=== PATIENT | male | born 1960 | race Caucasian/White ===

== ENCOUNTER 2017-10-01 03:06 | Emergency (ER) | payer OTHER, SELFPAY ==
[2017-10-01 03:10] VITALS: BP 152/100; PULSE 75; RESP 18; TEMP 36.8; O2SAT 97; BMI 29.5
--- NOTE | 2017-10-01 03:16 | CT_ITS ---
CT abdomen pelvis wo con COMPARISON: None HISTORY: Right-sided flank pain, history of kidney stones TECHNIQUE: Multiple axial scans obtained from hemidiaphragms the pelvic floor and were performed without IV or oral contrast. Sagittal and coronal reformats were evaluated as well. FINDINGS: The lower lung rivers are clear, there is a small focal pleural scar left posterior gutter versus small noncalcified pulmonary nodule abutting the pleura. Consider follow-up CT scan the chest in 6 month to evaluate for interval stability. The liver spleen stomach pancreas and gallbladder appear grossly normal. The adrenal glands are normal. The kidneys are normal in size and there are tiny punctate nonobstructing calculus midpole left kidney. There is no obstructive uropathy of either kidney. Small bowel appears normal. The appendix is normal. There is a moderate amount stool in the ascending and transverse colon. The urinary bladder is normal, the prostate is slightly enlarged containing a couple of calcifications. There is a small left inguinal hernia containing fat only. IMPRESSION: Tiny punctate nonobstructing calculus left kidney, there is no obstructive uropathy of either kidney., I basically agree with the [facility] report except for lack of mention of the left-sided pleural based nodule versus scar.
[2017-10-01 03:25] LABS: Microscopic, Urine URINE MICROSCOPIC (MICROSCOPIC)
[2017-10-01 03:26] LABS: Appearance,Urine CLEAR (Clear); Bilirubin,Urine Negative (Negative); Blood, Urine Negative (Negative); Color,Urine YELLOW (Yellow); Glucose,Urine (UA) Negative (Negative); Ketones,Urine Negative (Negative); Leukocyte Esterase,Urine Negative (Negative); Nitrate,Urine Negative (Negative); PH,Urine 5.5 (5.0-8.5); Protein,Urine Negative (Negative); Specific Gravity, Urine >= 1.030 (1.005-1.030); Urobilinogen,Urine 0.2 EU/dl (0.2)
[2017-10-01 03:29] LABS: Amorphous Sediment,Urine Trace /lpf; Mucus,Urine 4+ /lpf
[2017-10-01 03:39] LABS: Basophils # 0.1 K/mm3 (0-0.2); Basophils % 0.5 % (0.1-2.0); Eosinophils # 0.4 K/mm3 (0.0-0.4); Eosinophils % 2.9 % (0.1-12.0); Hematocrit 49.8 % (42.0-52.0); Hemoglobin 16.3 g/dL (14.1-18.0); Lymphocytes # 2.4 K/mm3 (0.7-4.5); Lymphocytes % 18.5 K/mm3 (10-50); Mean Corpuscular HGB Conc 32.8 g/dL (31.8-35.4); Mean Corpuscular Hemoglobin 31.2 pg (27.0-31.2); Mean Platelet Volume 7.5 fl (7.4-10.4); Monocytes # 0.5 K/mm3 (0.1-1.0); Monocytes % 3.6 % (1.7-9.3); Neutrophils # 9.6 K/mm3 (1.8-7.8); Neutrophils % 74.5 % (37.0-80.0); Platelet Count 283 K/mm3 (142-424); Red Blood Count 5.24 M/mm3 (4.60-6.20); Red Cell Distribution Width 14.5 % (11.5-17.5); White Blood Count 12.8 K/mm3 (4.8-10.8)
[2017-10-01 03:44] LABS: Alanine Aminotransferase 37 U/L (12-78); Albumin/Globulin Ratio 1.2 (1.1-1.8); Alkaline Phosphatase 96 U/L (46-116); Anion Gap 12.8 mEq/L (5-15); Aspartate Amino Transferase 18 U/L (15-37); Bilirubin,Total 0.5 mg/dL (0.2-1.0); Blood Urea Nitrogen 17 mg/dL (7-18); Calcium 8.8 mg/dL (8.5-10.1); Carbon Dioxide 25 mmol/L (21.0-32.0); Chloride 104 mmol/L (98-107); Creatinine Clearance Estimated 137 mL/min (0-300); Creatinine,Serum 0.79 mg/dL (0.70-1.30); Estimated Glomerular Filt Rate 102 ml/min (>60); GFR (African American) 124 ML/MIN (>60); Globulin 3.4 gm/dl (1.3-3.2); Glucose 146 mg/dL (74-106); Potassium 3.8 mmoL/L (3.5-5.1); Sodium 138 mmol/L (136-145); Total Protein,Serum 7.4 gm/dL (6.4-8.2)
--- NOTE | 2017-10-01 04:09 | HMH.EDNVD ---
ED Disposition Clinical Impression: Flank pain, acute Disposition: Home, Self-Care Condition on Discharge: Good Instructions: DI for Flank Pain Additional Instructions: fluids and see pcp for follow up Referrals: Javier Drake MD [Primary Care Provider] - - Critical Care Critical Care Time: No Attestation: On 10/01/17, the high probability of a clinically significant, sudden or life threatening deterioration of the following system(s) required my full and direct attention, intervention and personal management. The time I documented below is in addition to time spent performing reported procedures but includes the following listed in this critical care notation. Medical Decision Making - Medical Records Medical records reviewed: Yes: I reviewed the patient's medical records. Vital Signs: 10/01/17 03:10 Temperature 98.2 F Temperature Source Oral Pulse Rate [Left Brachial] 75 Respiratory Rate 18 Blood Pressure [Left Arm] 152/100 Blood Pressure Mean [Left Arm] 117 Blood Pressure Source [Left Arm] Automatic Cuff Blood Pressure Position [Left Arm] Sitting 02 Sat by Pulse Oximetry 97 Oxygen Delivery Method Room Air - Lab Data Lab results reviewed: Yes: I reviewed the patient's lab results. Lab Results 10/01/17 03:20: Urine Color Yellow, Urine Appearance Clear, Urine pH 5.5, Ur Specific [place] >= 1.030, Urine Protein Negative, Urine Glucose (UA) Negative, Urine Ketones Negative, Urine Blood Negative, Urine Nitrate Negative, Urine Bilirubin Negative, Urine Urobilinogen 0.2, Ur Leukocyte Esterase Negative, Urine WBC 5-10, Amorphous Sediment Trace, Urine Mucus 4+ 10/01/17 03:25: WBC 12.8 H, RBC 5.24, Hgb 16.3, Hct 49.8, MCV 95.0 H, MCH 31.2, MCHC 32.8, RDW 14.5, Plt Count 283, MPV 7.5, Neut % (Auto) 74.5, Lymph % (Auto) 18.5, [place] % (Auto) 3.6, Eos % (Auto) 2.9, Baso % (Auto) 0.5, Neut # (Auto) 9.6 H, Lymph # (Auto) 2.4, [place] # (Auto) 0.5, Eos # (Auto) 0.4, Baso # (Auto) 0.1 10/01/17 03:25: Sodium 138, Potassium 3.8, Chloride 104, Carbon Dioxide 25, Anion Gap 12.8, BUN 17, Creatinine 0.79, Estimated Creat Clear 137, Estimated GFR 102, Est GFR ( Amer) 124, Glucose 146 H, Calcium 8.8, Total Bilirubin 0.5, AST 18, ALT 37, Alkaline Phosphatase 96, Total Protein 7.4, Albumin 4.0, Globulin 3.4 H, Albumin/Globulin Ratio 1.2 Result diagrams: 10/01/17 03:25 10/01/17 03:25 Orders (Tests/Meds): ED MEDICATIONS Generic Name Dose Route Start Last Admin Trade Name Freq PRN Reason Stop Dose Admin Sodium Chloride 1,000 mls @ 999 mls/hr 10/01/17 03:30 10/01/17 03:31 Sod Chloride 0.9% 1000ml Bag IV 10/01/17 04:30 999 mls/hr .Q1H1M ELLIE Administration Discontinued Medications Generic Name Dose Route Start Last Admin Trade Name Freq PRN Reason Stop Dose Admin Ketorolac Tromethamine 30 mg 10/01/17 03:18 10/01/17 03:27 Toradol 30mg/Ml Vial IV 10/01/17 03:19 30 mg ONCE ONE Administration ORDERS Category Date Time Status CT abdomen pelvis wo con Stat Cat Scan 10/01/17 03:16 Taken - CT Data CT Scan: Abdomen, Pelvis Time Received: 04:[address] Reviewed: Yes: I have viewed the radiologist's interpretation Preliminary Findings: Normal/NAD - Kody Inquiry Pt receiving controlled substance: No Nausea/Vomiting/Diarrhea HPI - General Chief complaint: Abdominal Pain Stated complaint: mid back pain Time Seen by Provider: 10/01/17 04:09 Mode of Arrival: Ambulatory Source of Information: Patient, Spouse, Medical Record Limitations: No Limitations Description of Symptoms (Recalled from ER Triage Doc. by RN): RIGHT FLANK PAIN, SUDDEN ONSET AT 0100 - History of Present Illness HPI Narrative: sudden onset of rt flank pain MD complaint: nausea Onset (ago): hour(s) Associated Abdominal Pain: Yes Location of pain: flank Severity: moderate - Related Data Allergies Allergy/AdvReac Type Severity Reaction Status Date / Time No Known Allergies Allergy Verified 0
--- NOTE | 2017-10-01 04:13 | ED_ITS ---
ED Disposition Clinical Impression: Flank pain, acute Disposition: Home, Self-Care Condition on Discharge: Good Instructions: DI for Flank Pain Additional Instructions: fluids and see pcp for follow up Referrals: Javier Drake MD [Primary Care Provider] - - Critical Care Critical Care Time: No Attestation: On 10/01/17, the high probability of a clinically significant, sudden or life threatening deterioration of the following system(s) required my full and direct attention, intervention and personal management. The time I documented below is in addition to time spent performing reported procedures but includes the following listed in this critical care notation. Medical Decision Making - Medical Records Medical records reviewed: Yes: I reviewed the patient's medical records. Vital Signs: 10/01/17 03:10 Temperature 98.2 F Temperature Source Oral Pulse Rate [Left Brachial] 75 Respiratory Rate 18 Blood Pressure [Left Arm] 152/100 Blood Pressure Mean [Left Arm] 117 Blood Pressure Source [Left Arm] Automatic Cuff Blood Pressure Position [Left Arm] Sitting 02 Sat by Pulse Oximetry 97 Oxygen Delivery Method Room Air - Lab Data Lab results reviewed: Yes: I reviewed the patient's lab results. Lab Results 10/01/17 03:20: Urine Color Yellow, Urine Appearance Clear, Urine pH 5.5, Ur Specific [place] >= 1.030, Urine Protein Negative, Urine Glucose (UA) Negative, Urine Ketones Negative, Urine Blood Negative, Urine Nitrate Negative, Urine Bilirubin Negative, Urine Urobilinogen 0.2, Ur Leukocyte Esterase Negative, Urine WBC 5-10, Amorphous Sediment Trace, Urine Mucus 4+ 10/01/17 03:25: WBC 12.8 H, RBC 5.24, Hgb 16.3, Hct 49.8, MCV 95.0 H, MCH 31.2, MCHC 32.8, RDW 14.5, Plt Count 283, MPV 7.5, Neut % (Auto) 74.5, Lymph % (Auto) 18.5, [place] % (Auto) 3.6, Eos % (Auto) 2.9, Baso % (Auto) 0.5, Neut # (Auto) 9.6 H, Lymph # (Auto) 2.4, [place] # (Auto) 0.5, Eos # (Auto) 0.4, Baso # (Auto) 0.1 10/01/17 03:25: Sodium 138, Potassium 3.8, Chloride 104, Carbon Dioxide 25, Anion Gap 12.8, BUN 17, Creatinine 0.79, Estimated Creat Clear 137, Estimated GFR 102, Est GFR ( Amer) 124, Glucose 146 H, Calcium 8.8, Total Bilirubin 0.5, AST 18, ALT 37, Alkaline Phosphatase 96, Total Protein 7.4, Albumin 4.0, Globulin 3.4 H, Albumin/Globulin Ratio 1.2 Result diagrams: 10/01/17 03:25 10/01/17 03:25 Orders (Tests/Meds): ED MEDICATIONS Generic Name Dose Route Start Last Admin Trade Name Freq PRN Reason Stop Dose Admin Sodium Chloride 1,000 mls @ 999 mls/hr 10/01/17 03:30 10/01/17 03:31 Sod Chloride 0.9% 1000ml Bag IV 10/01/17 04:30 999 mls/hr .Q1H1M ELLIE Administration Discontinued Medications Generic Name Dose Route Start Last Admin Trade Name Freq PRN Reason Stop Dose Admin Ketorolac Tromethamine 30 mg 10/01/17 03:18 10/01/17 03:27 Toradol 30mg/Ml Vial IV 10/01/17 03:19 30 mg ONCE ONE Administration ORDERS Category Date Time Status CT abdomen pelvis wo con Stat Cat Scan 10/01/17 03:16 Taken - CT Data CT Scan: Abdomen, Pelvis Time Received: 04:[address] Reviewed: Yes: I have viewed the radiologist's interpretation Preliminary Findings: Normal/NAD - Kody Inquiry Pt receiving controlled substance: No Nausea/Vomiting/Diarrhea HPI - General Ch
[2017-10-01 04:21] VITALS: BP 142/91; PULSE 68; RESP 16; TEMP 36.6; O2SAT 97
== END 2017-10-01 04:25 | disposition home or self-care (01) ==
PROVIDERS: Emergency Provider Emergency Medicine; Family Provider Internal Medicine Adolescent Medicine; PCP Internal Medicine Adolescent Medicine
DX: R10.9 Unspecified abdominal pain (principal); E11.9 Type 2 diabetes mellitus without complications
CPT/HCPCS: 74176; 80053; 81001; 85025; 96365; 96375; 99282

== ENCOUNTER → 2017-10-06 06:31 | Outpatient (CLI) | payer OTHER, SELFPAY ==
--- NOTE | 2017-10-06 06:33 | NM_ITS ---
History and Indications: Diabetes, hyperlipidemia, tobacco use, family history and chest pain Procedure: Patient exercised on Randy protocol 9 minutes and 35 seconds, resting heart rate was 69 bpm resting blood pressure 146/86, with exercise maximum heart rate achieved was 1 56 bpm which is equal to 94% of the maximum predicted heart rate and a blood pressure was 185/90. Test was stopped due to shortness of breath, patient denied any complained of chest pain. Patient has good exercise capacity achieved 10.1mets of workload on treadmill, the blood pressure response to exercise was adequate. Electrocardiogram: Resting electrocardiogram showed sinus rhythm right ventricular conduction delay nonspecific T wave changes, with exercise excessive baseline artifact seen, less than 1.[address] segment depression noted from the baseline EKG. The EKG portion of the exercise Myoview is nondiagnostic secondary to baseline abnormal EKG. Cardiac stress and resting SPECT images: Cardiac stress and resting SPECT images were obtained using technetium 99 Myoview 10.1 mCi at rest and 30.3 mCi at stress, gated SPECT further analysis of segmental wall motion and calculation of the ejection fraction also done. Cardiac stress and rest SPECT images show decreased tracer activity in the inferior and posterobasal wall which partially improves on the resting images suggestive of mixed ischemia and scar, computer derived ejection fraction is 65% with inferior and posterobasal wall moderate hypokinesis. Right ventricle is mildly enlarged with normal contractility. Conclusion: 1. The EKG portion of the exercise Myoview is nondiagnostic secondary to baseline abnormal EKG, patient has good exercise capacity achieved 10.1mets of workload on treadmill, the blood pressure response to exercise with adequate, test was started due to shortness of breath. 2. Scintigraphic evidence of ischemia and scar involving the inferior and posterobasal wall, computer derived ejection fraction 65% with segmental wall motion abnormality described above, right ventricle is mildly enlarged with normal contractility. 3. Abnormal exercise Myoview study.
== END ==
PROVIDERS: Family Provider Internal Medicine Adolescent Medicine; PCP Internal Medicine Adolescent Medicine; Visit Provider Internal Medicine Adolescent Medicine
DX: R07.9 Chest pain, unspecified (principal); R06.09 Other forms of dyspnea
CPT/HCPCS: 78452; 93017; A9502

== ENCOUNTER 2017-10-12 07:15 | Day surgery (SDC) | payer OTHER, SELFPAY ==
[2017-10-12] VITALS (12 sets, daily range): BP systolic 99–145; BP diastolic 51–88; PULSE 54–77; RESP 16–20; TEMP 36.6; O2SAT 92–99; BMI 28.8
--- NOTE | 2017-10-12 07:22 | IR_ITS ---
CARDIAC CATHETERIZATION DATE OF CATHETERIZATION:10/12/2017 10:05 AM PROCEDURES: 1. Left heart catheterization 2. Left ventriculogram 3. Selective coronary angiogram INDICATION FOR TEST: 1. Abnormal high risk stress test 2. Risk factors for coronary artery disease 3. Angina pectoris Informed consent was obtained prior to the procedure. COMPLICATIONS: None ESTIMATED BLOOD LOSS: Less than 10 ml. TECHNIQUE: One percent lidocaine used to anesthetize the right anterior aspect of the wrist. The right radial artery was accessed via the Seldinger technique. A 6 Upper Sor[place] sheath was placed in the right radial artery. 2.5 mg of verapamil, 800 mcg of nitroglycerin and 5000 U Heparin were given through the arterial sheath. The trap catheter was also used to perform left heart catheterization and left ventriculography. At the end of the procedure the patient was transferred to the post-op holding area in stable condition for arterial sheath removal. ANGIOGRAPHIC RESULTS: 1. The left main artery normal 2. The left anterior descending artery is proximally normal and has a mid vessel smooth 20% stenosis 3. The circumflex artery codominant and normal 4. The right coronary artery codominant and has a mid vessel smooth 20% stenosis 5. The VAZQUEZ ventriculogram reveals normal 65% 6. The left ventricular end-diastolic pressure 10 mmHg IMPRESSION: 1. Mild nonflow limiting coronary artery disease 2. Normal ejection fraction 3. Normal left ventricular pressure PLAN: 1. Medical management 2. Risk factor modification 3. Evaluation of noncardiac chest pain
== END 2017-10-12 13:48 | disposition home or self-care (01) ==
LOC: CATHLAB 07:20
PROVIDERS: Family Provider Internal Medicine Adolescent Medicine; PCP Internal Medicine Adolescent Medicine; Visit Provider Internal Medicine
DX: I20.8 Other forms of angina pectoris (principal); R94.39 Abnormal result of other cardiovascular function study; R94.31 Abnormal electrocardiogram [ECG] [EKG]; Z72.0 Tobacco use; E11.9 Type 2 diabetes mellitus without complications; Z82.49 Family history of ischemic heart disease and other diseases of the circulatory system
CPT/HCPCS: 93458; 99152; C1725; C1769; J1644; Q9967

== ENCOUNTER → 2018-01-20 11:31 | Outpatient (REF) | payer OTHER, SELFPAY ==
[2018-01-20 13:37] LABS: Alanine Aminotransferase 37 U/L (12-78); Albumin/Globulin Ratio 1.2 (1.1-1.8); Alkaline Phosphatase 110 U/L (46-116); Anion Gap 11.2 mEq/L (5-15); Aspartate Amino Transferase 26 U/L (15-37); Blood Urea Nitrogen 16 mg/dL (7-18); Calcium 9.2 mg/dL (8.5-10.1); Carbon Dioxide 28 mmol/L (21.0-32.0); Chloride 104 mmol/L (98-107); Chol/HDL Ratio 4.2 (1-3.5); Cholesterol 137 mg/dL (140-200); Creatinine,Serum 0.69 mg/dL (0.70-1.30); Estimated Glomerular Filt Rate 119 ml/min (>60); GFR (African American) 144 ML/MIN (>60); Globulin 3.3 gm/dl (1.3-3.2); Glucose 69 mg/dL (74-106); HDL Cholesterol 33 mg/dL (27-67); LDL Cholesterol 72 mg/dL (0-130); Potassium 4.2 mmoL/L (3.5-5.1); Prostate Specific Ag Screen 20.1 ng/mL (0.0-4.0); Sodium 139 mmol/L (136-145); Total Protein,Serum 7.3 gm/dL (6.4-8.2); Triglycerides 160 mg/dL (30-200); VLDL Cholesterol 32 mg/dL (0-40)
[2018-01-20 14:23] LABS: Basophils # 0.1 K/mm3 (0-0.2); Basophils % 0.7 % (0.1-2.0); Eosinophils # 0.3 K/mm3 (0.0-0.4); Eosinophils % 2.7 % (0.1-12.0); Hematocrit 54.8 % (42.0-52.0); Hemoglobin 17.7 g/dL (14.1-18.0); Lymphocytes # 2.1 K/mm3 (0.7-4.5); Lymphocytes % 17.6 K/mm3 (10-50); Mean Corpuscular HGB Conc 32.2 g/dL (31.8-35.4); Mean Corpuscular Hemoglobin 31.1 pg (27.0-31.2); Mean Corpuscular Volume 96.4 fl (80-94); Mean Platelet Volume 8.5 fl (7.4-10.4); Monocytes # 0.6 K/mm3 (0.1-1.0); Monocytes % 5.3 % (1.7-9.3); Neutrophils # 8.6 K/mm3 (1.8-7.8); Neutrophils % 73.7 % (37.0-80.0); Platelet Count 310 K/mm3 (142-424); Red Blood Count 5.69 M/mm3 (4.60-6.20); Red Cell Distribution Width 14.9 % (11.5-17.5); White Blood Count 11.6 K/mm3 (4.8-10.8)
[2018-01-20 15:38] LABS: Hemoglobin A1C 5.2 % (0.0-7.0)
[2018-01-21 09:24] LABS: LH 6.4 mIU/mL (1.7-8.6)
[2018-01-21 19:40] LABS: Prolactin 9.1 ng/mL (4.0-15.2); Testosterone,Total 555 ng/dL (264-916)
== END ==
LOC: LAB.CARL 11:31
PROVIDERS: Visit Provider Nurse Practitioner Family
DX: Z00.00 Encounter for general adult medical examination without abnormal findings (principal); N40.0 Benign prostatic hyperplasia without lower urinary tract symptoms; N52.9 Male erectile dysfunction, unspecified; E78.5 Hyperlipidemia, unspecified; E11.9 Type 2 diabetes mellitus without complications; M06.9 Rheumatoid arthritis, unspecified
CPT/HCPCS: 80053; 80061; 83002; 83036; 84146; 84403; 85025; G0103

== ENCOUNTER → 2018-03-04 11:01 | Outpatient (CLI) | payer OTHER, SELFPAY ==
--- NOTE | 2018-03-04 11:05 | XR_ITS ---
XR chest 2V HISTORY: ITS.REASON: COPD, COUGH, TOBACCO USE ORDERING PHYSICIAN: Javier Drake MD PATIENT AGE: 57 years COMPARISON: 02/03/2016 FINDINGS: The cardiomediastinal silhouette and pulmonary vascularity are within normal limits. Calcified granulomas present in the right upper lobe. There is mild coarsening of the bronchovascular markings suggesting chronic peribronchial inflammatory change. No acute bony anomalies. IMPRESSION: Suspect chronic peribronchial inflammatory change/bronchitis/COPD with no acute infiltrate .
== END ==
PROVIDERS: Visit Provider Internal Medicine Adolescent Medicine
DX: J44.1 Chronic obstructive pulmonary disease with (acute) exacerbation (principal); R05 Cough; Z72.0 Tobacco use
CPT/HCPCS: 71046

== ENCOUNTER → 2018-03-14 12:57 | Outpatient (CLI) | payer OTHER, SELFPAY ==
[2018-03-14 16:05] LABS: Prostate Specific Ag, Diagnost 20.85 ng/mL (0.0-4.0)
== END ==
PROVIDERS: Visit Provider Urology
DX: R97.20 Elevated prostate specific antigen [PSA] (principal)
CPT/HCPCS: 36415; 84153

== ENCOUNTER → 2018-03-29 16:22 | Outpatient (CLI) | payer OTHER, SELFPAY ==
--- NOTE | 2018-03-29 16:25 | XR_ITS ---
XR chest 2V HISTORY: Cough and shortness of air, recent pneumonia, smoker ITS.REASON: LOBAR PNEUMONIA ORDERING PHYSICIAN: Javier Drake MD PATIENT AGE: 57 years COMPARISON: 03/04/2018 FINDINGS: Unremarkable cardiovascular structures. There remains mild coarsening of the bronchovascular markings similar to the previous exam which may be due to smoking-related lung disease/chronic bronchitis. There is increased density in the left lung base which was not present on the previous exam and may be due to an area of pneumonia. The remaining lungs are clear. No acute bony anomalies. IMPRESSION: Chronic changes with suspected left lower lobe pneumonia
== END ==
PROVIDERS: PCP Internal Medicine Adolescent Medicine; Visit Provider Internal Medicine Adolescent Medicine
DX: J18.1 Lobar pneumonia, unspecified organism (principal)
CPT/HCPCS: 71046

== ENCOUNTER → 2018-04-13 08:47 | Outpatient (CLI) | payer OTHER, SELFPAY ==
--- NOTE | 2018-04-13 08:59 | NM_ITS ---
NM bone scan whole body CLINICAL INDICATION: ITS.REASON: PROSTATE CANCER ORDERING PHYSICIAN: Olegario Paredes MD PATIENT AGE: 57 years Comparison: None DOSE: 26.6 mCi technetium MDP FINDINGS: Homogeneous and symmetric activity is present within the bony structures. No abnormal uptake that would indicate metastatic disease. There is some nonspecific periarticular activity in the left ankle and contamination artifact in the perineal area. Symmetric activity noted in the SI joints on both sides. There was some sclerosis in this region on previous CT scan related to sacroiliitis. IMPRESSION: No convincing evidence of bony metastasis
[2018-04-13 09:09] LABS: Blood Urea Nitrogen 13 mg/dL (7-18); Estimated Glomerular Filt Rate 100 ml/min (>60); GFR (African American) 121 ML/MIN (>60)
--- NOTE | 2018-04-13 10:39 | HMH.ITSHM ---
ASA TAMSULOSINE OMEPRAZOLE
== END ==
PROVIDERS: Family Provider Internal Medicine Adolescent Medicine; PCP Internal Medicine Adolescent Medicine; Visit Provider Urology
DX: C61 Malignant neoplasm of prostate (principal)
CPT/HCPCS: 36415; 78306; 82565; 84520; A9503

== ENCOUNTER → 2018-04-17 08:44 | Outpatient (CLI) | payer OTHER, SELFPAY ==
--- NOTE | 2018-04-17 08:52 | CT_ITS ---
CT abdomen pelvis w con INDICATION: New diagnosis of: PROSTATE CA ORDERING PHYSICIAN: Olegario Paredes MD PATIENT AGE: 57 years COMPARISON: September 2017 TECHNIQUE: 75 cc Isovue-370 administered IV with scanning at 70 seconds followed delayed scan at 10 minutes. Oral contrast also utilized Axial images obtained with sagittal and coronal reformats. All CT scans at the facility use one or more dose reduction, viz: automated exposure control, ma/kV adjustment per patient size (including targeted exams where dose is matched to indication, i.e. head), or iterative reconstruction technique. FINDINGS: Lung bases are clear. Heart normal size. . Liver. No focal lesions. No ductal dilatation. Spleen unremarkable. Pancreas unremarkable. Adrenals unremarkable. Gallbladder. No calcified gallstones. tract . No urinary tract calculi nor obstruction. Normal enhancement kidneys. Ureters unremarkable Minimal stranding about the kidneys reflecting mild chronic changes . Right kidney.: 12 mm cyst at the lateral aspect lower right kidney Small 8 mm cyst just superior to this also noted Left kidney: 14 mm cyst lower pole left kidney Pelvis slightly enlarged prostate measures 5.2 cm transverse diameter scattered calcifications. Seminal vesicles appear normal size. No evident pelvic adenopathy or focal mass otherwise seen. No free fluid at pelvis. . No retroperitoneal or mesenteric nor inguinal adenopathy. GI tract. Oral contrast is seen within the stomach and within distal small bowel loops as well as throughout the majority of the colon. generous stool the rectum moderate stool elsewhere throughout the colon Small bowel appears normal. Terminal ileum unremarkable. Appendix upper normal wall thickness but similar to previous study... . There is bulging of fat through a dilated left inguinal ring reflecting a small developing left inguinal hernia contains mainly fat but there is segment of Proximal sigmoid which dips s towards this the entry of this small developing left inguinal hernia. Small diverticulum associated with the sigmoid noted. Axial image 154, 153, coronal 31 Stable very slight minimal hazy fat about this area unchanged. Osseous structures. No evidence of metastatic disease. No subcutaneous change. ======= IMPRESSION 1. Stable CT abdomen and pelvis. 2.. Prostate minimally enlarged but appears similar to the September 2017 study no asymmetry or focal mass evident by CT . Seminal vesicles appear normal size . No evidence of regional adenopathy. No retroperitoneal adenopathy.. No evidence of osseous metastatic disease 3. Small benign renal cysts bilateral 4. Small stable mainly fat containing left inguinal hernia.
== END ==
PROVIDERS: Family Provider Internal Medicine Adolescent Medicine; PCP Internal Medicine Adolescent Medicine; Visit Provider Urology
DX: C61 Malignant neoplasm of prostate (principal)
CPT/HCPCS: 74177; Q9967

== ENCOUNTER → 2018-06-20 10:31 | Outpatient (CLI) | payer OTHER, SELFPAY ==
[2018-06-20 13:26] LABS: Prostate Specific Ag, Diagnost < 0.05 ng/mL (0.0-4.0)
== END ==
PROVIDERS: PCP Internal Medicine Adolescent Medicine; Visit Provider Urology
DX: C61 Malignant neoplasm of prostate (principal)
CPT/HCPCS: 36415; 84153

== ENCOUNTER → 2018-09-19 16:17 | Outpatient (CLI) | payer BC, SELFPAY ==
[2018-09-21 08:13] LABS: PSA, Free <0.01 ng/mL; Prostate Specific Ag <0.1 ng/mL (0.0-4.0)
== END ==
PROVIDERS: Visit Provider Urology
DX: C61 Malignant neoplasm of prostate (principal)
CPT/HCPCS: 36415; 84153; 84154

== ENCOUNTER → 2018-12-18 17:10 | Outpatient (CLI) | payer BC, SELFPAY ==
[2018-12-18 21:33] LABS: Prostate Specific Ag, Diagnost 0 ng/mL (0.0-4.0)
== END ==
PROVIDERS: Visit Provider Urology
DX: R97.20 Elevated prostate specific antigen [PSA] (principal)
CPT/HCPCS: 36415; 84153

== ENCOUNTER → 2019-01-18 17:00 | Outpatient (CLI) | payer BC, SELFPAY ==
[2019-01-18 17:51] LABS: Basophils % 0.4 % (0.1-2.0); Eosinophils # 0.1 K/mm3 (0.0-0.4); Eosinophils % 1.4 % (0.1-12.0); Hematocrit 42.7 % (42.0-52.0); Hemoglobin 14.8 g/dL (14.1-18.0); Lymphocytes # 1.9 K/mm3 (0.7-4.5); Lymphocytes % 22.7 % (10-50); Mean Corpuscular HGB Conc 34.6 g/dL (31.8-35.4); Mean Corpuscular Hemoglobin 31.4 pg (27.0-31.2); Mean Corpuscular Volume 90.7 fl (80-94); Mean Platelet Volume 6.9 fl (7.4-10.4); Monocytes # 0.4 K/mm3 (0.1-1.0); Monocytes % 5.3 % (1.7-9.3); Neutrophils # 5.9 K/mm3 (1.8-7.8); Neutrophils % 70.2 % (37.0-80.0); Platelet Count 282 K/mm3 (142-424); Red Blood Count 4.71 M/mm3 (4.60-6.20); Red Cell Distribution Width 14.8 % (11.5-17.5); White Blood Count 8.3 K/mm3 (4.8-10.8)
[2019-01-18 18:36] LABS: Alanine Aminotransferase 43 U/L (12-78); Albumin Level 3.8 gm/dL (3.4-5.0); Albumin/Globulin Ratio 1.2 (1.1-1.8); Alkaline Phosphatase 91 U/L (46-116); Anion Gap 14.9 mEq/L (5-15); Aspartate Amino Transferase 22 U/L (15-37); Bilirubin,Total 0.8 mg/dL (0.2-1.0); Blood Urea Nitrogen 16 mg/dL (7-18); Carbon Dioxide 25 mmol/L (21.0-32.0); Chloride 106 mmol/L (98-107); Chol/HDL Ratio 3.5 (1-3.5); Cholesterol 114 mg/dL (140-200); Creatinine,Serum 0.82 mg/dL (0.70-1.30); Estimated Glomerular Filt Rate 97 ml/min (>60); GFR (African American) 118 ML/MIN (>60); Globulin 3.3 gm/dl (1.3-3.2); Glucose 83 mg/dL (74-106); HDL Cholesterol 33 mg/dL (27-67); LDL Cholesterol 57 mg/dL (0-130); Potassium 3.9 mmoL/L (3.5-5.1); Sodium 142 mmol/L (136-145); Total Protein,Serum 7.1 gm/dL (6.4-8.2); Triglycerides 122 mg/dL (30-200); VLDL Cholesterol 24 mg/dL (0-40)
[2019-01-18 18:45] LABS: Erythrocyte Sedimentation Rate 10 mm/hr (0-20)
[2019-01-18 18:58] LABS: Hemoglobin A1C 5.4 % (0.0-7.0)
== END ==
PROVIDERS: Visit Provider Nurse Practitioner Family
DX: E78.5 Hyperlipidemia, unspecified (principal); E11.9 Type 2 diabetes mellitus without complications; M06.9 Rheumatoid arthritis, unspecified
CPT/HCPCS: 36415; 80053; 80061; 83036; 85025; 85651

== ENCOUNTER → 2019-03-21 17:01 | Outpatient (CLI) | payer BC, SELFPAY ==
[2019-03-21 19:33] LABS: Prostate Specific Ag, Diagnost 0 ng/mL (0.0-4.0)
== END ==
PROVIDERS: Visit Provider Urology
DX: C61 Malignant neoplasm of prostate (principal)
CPT/HCPCS: 36415; 84153

== ENCOUNTER → 2019-06-13 17:11 | Outpatient (CLI) | payer BC, SELFPAY ==
[2019-06-13 19:06] LABS: Prostate Specific Ag, Diagnost 0 ng/mL (0.0-4.0)
== END ==
PROVIDERS: Visit Provider Urology
DX: C61 Malignant neoplasm of prostate (principal)
CPT/HCPCS: 36415; 84153

== ENCOUNTER → 2019-09-17 17:02 | Outpatient (CLI) | payer BC, SELFPAY ==
[2019-09-17 18:07] LABS: Prostate Specific Ag, Diagnost < 0.05 ng/mL (0.0-4.0)
== END ==
PROVIDERS: Urology; Visit Provider Urology
DX: C61 Malignant neoplasm of prostate (principal)
CPT/HCPCS: 36415; 84153

== ENCOUNTER → 2020-03-20 15:54 | Outpatient (CLI) | payer BC, SELFPAY ==
[2020-03-20 19:13] LABS: Prostate Specific Ag, Diagnost < 0.064 ng/ml (0.0-4.0)
== END ==
PROVIDERS: Visit Provider Urology
DX: C61 Malignant neoplasm of prostate (principal)
CPT/HCPCS: 36415; 84153

== ENCOUNTER → 2021-01-29 14:14 | Outpatient (CLI) | payer BC, SELFPAY ==
--- NOTE | 2021-01-29 14:19 | XR_ITS ---
PROCEDURE: XR KNEE RT 3V CLINICAL INDICATION: PAIN IN RT KNEE COMPARISON: No exams were available for comparison FINDINGS: No fracture or dislocation. No lytic or blastic change. There is normal mineralization. The joint spaces are well-preserved. No significant degenerative/arthritic changes. No erosive changes evident. Other findings:None. IMPRESSION: No acute findings. Dictated by: Jorge Wilkerson MD 01/29/2021 15:26 Jorge Wilkerson MD in [place] 01/29/2021 15:26
[2021-01-29 15:35] LABS: Chloride 101 mmol/L (98-107); Sodium 136 mmol/L (136-145)
[2021-01-29 15:38] LABS: Alanine Aminotransferase 33 U/L (12-78); Albumin Level 4.4 g/dl (3.5-5.0); Albumin/Globulin Ratio 1.4 (1.1-1.8); Alkaline Phosphatase 95 U/L (38-126); Aspartate Amino Transferase 30 U/L (17-59); Bilirubin,Total 0.7 mg/dl (0.2-1.3); Blood Urea Nitrogen 13 mg/dl (9-20); Calcium 9.2 mg/dl (8.4-10.2); Carbon Dioxide 27 mmol/L (22.0-30.0); Estimated Glomerular Filt Rate 116 ml/min (>60); GFR (African American) 140 ML/MIN (>60); Globulin 3.1 g/dL (1.3-3.2); Glucose 92 mg/dl (74-100); Total Protein,Serum 7.5 g/dl (6.3-8.2)
[2021-01-29 15:43] LABS: Hemoglobin A1C 5.3 % (4.0-6.0)
[2021-01-29 15:44] LABS: C-Reactive Protein 6.1 mg/L (0-4)
[2021-01-29 16:05] LABS: Uric Acid 4.7 mg/dl (3.5-8.5)
[2021-01-29 16:07] LABS: Erythrocyte Sedimentation Rate 10 mm/hr (0-20)
[2021-02-01 14:25] LABS: Anti-Centromere B Antibodies <0.2 AI (0.0-0.9); Anti-DNA (DS) Ab Qn <1 IU/mL (0-9); Anti-Jo-1 <0.2 AI (0.0-0.9); Anti-Smith Antibody <0.2 AI (0.0-0.9); Antichromatin Antibodies <0.2 AI (0.0-0.9); Antiscleroderma-70 Antibodies <0.2 AI (0.0-0.9); RNP Antibodies 0.6 AI (0.0-0.9); Sjogren's Anti-SS-A <0.2 AI (0.0-0.9); Sjogren's Anti-SS-B <0.2 AI (0.0-0.9)
[2021-02-03 00:07] LABS: Anti-Cyclic Citrullinated Pept 4 units (0-19)
== END ==
PROVIDERS: PCP Internal Medicine Adolescent Medicine; Visit Provider Internal Medicine Adolescent Medicine
DX: M25.561 Pain in right knee (principal); E11.9 Type 2 diabetes mellitus without complications; M06.9 Rheumatoid arthritis, unspecified
CPT/HCPCS: 36415; 73562; 80053; 83036; 84550; 85651; 86140; 86200; 86225; 86235

== ENCOUNTER 2021-04-18 17:39 | Emergency (ER) | payer BC, SELFPAY ==
[2021-04-18 18:35] VITALS: BP 140/87; PULSE 80; RESP 19; TEMP 36.9; O2SAT 98; BMI 31.6
--- NOTE | 2021-04-18 19:01 | HMH.EDUTC ---
[facility] [place] Disposition Clinical Impression: Exposure to COVID-19 virus Disposition: Home, Self-Care Condition on Discharge: Good Instructions: DI for COVID-19 (Suspected or Confirmed ), Coronavirus Disease 2019, Preventing the Spread of Coronavirus Discharge Instructions Additional Instructions: *Monitor Temp, Over the counter Motrin or Tylenol as directed/as needed Tylenol every 4 hours and Motrin every 6 hours (as long as your family doctor has told you that you can take it) for fever or pain. and straight to ER if unable to lower temp less than 101.0 after medication given *Warm salt water gargles may help to soothe the throat *Throat Lozenges *Warm fluids like tea with honey may help to soothe the throat *Sleep elevated *Humidifier/Vaporizer Follow up IMMEDIATELY for new or worsening symptoms or no Noticeable improvement over the next 48-72 hours. 911 for difficulty breathing or swallowing You were tested for today for COVID19 your test result should be back in the next 24-48 hours, you may call to the [facility] to see if your test results are back in the next 48 hours [phone] [facility] hours are 9am-9pm You was given a handout with instructions for Self Quarantine and Self isolation for while you wait on test results and what to do if they are positive If you are positive the Health Dept will be contacting you also Make sure to take your Vitamins Vit. C Vit D and Zinc if you can take them Referrals: Javier Drake MD [Primary Care Provider] - Forms: Work/School Release Time of Disposition: 19:06 Medical Decision Making - Kody Inquiry Pt receiving controlled substance: No Kody was queried for this patient: No Vital Signs: 04/18/21 18:35 Temperature 98.4 F Temperature Source Oral Pulse Rate [Right Brachial] 80 Respiratory Rate 19 Blood Pressure [Right Arm] 140/87 Blood Pressure Mean [Right Arm] 104 Blood Pressure Source [Right Arm] Automatic Cuff Blood Pressure Position [Right Arm] Sitting 02 Sat by Pulse Oximetry 98 Oxygen Delivery Method Room Air Orders (Tests/Meds): ORDERS Category Date Time Status Covid-19 Nasal PCR ([facility]) Routine Lab 04/18/21 18:[address] [facility] [place] HPI - General Stated complaint: exposure,sore throat,cough Time Seen by Provider: 04/18/21 19:01 Mode of Arrival: Ambulatory Source of Information: Patient Limitations: No Limitations Description of Symptoms (Recalled from Triage Doc. by RN): COVID TEST D/T EXPOSURE. C/O SORE THROAT, BODY ACHES HEENT Symptoms (Recalled from RN notes): Yes Resp Symptoms (Recalled from RN notes): No Skin Symptoms (Recalled from RN notes): No MS Symptoms (Recalled from RN notes): Yes Functional Status (Recalled from RN notes): WNL - History of Present Illness Provider Complaint: Patient state that he was recently around someone that tested positive for COVID state that he has been having some nasal drainage and scratchy throat and feeling achy States that he thinks it is his allergies but due to being around family member wanted to get tested - Related Data Home Medications Medication Instructions Recorded Confirmed aspirin 81 mg tablet,delayed 81 mg PO ONCE tab 10/11/17 03/21/20 release meloxicam 7.5 mg tablet 7.5 mg PO ONCE 10/11/17 03/21/20 methotrexate sodium 2.5 mg tablet 17.5 mg PO QWEEK tab 10/11/17 03/21/20 omeprazole 20 mg capsule,delayed 20 mg PO ONCE 10/11/17 03/21/20 release rosuvastatin 20 mg tablet 20 mg PO ONCE 10/11/17 03/21/20 tamsulosin 0.4 mg capsule 0.4 mg PO ONCE 10/11/17 03/21/20 Allergies Allergy/AdvReac Type Severity Reaction Status Date / Time No Known Allergies Allergy Verified 03/21/20 15:21 - Worker's Comp Is this a Worker's Comp case?: No [facility] History - Hepatitis A Screen Drug use history?: No High risk sexual behaviors?: No History of sexually transmitted infection?: No Currently employed?: No Childcare worker?: No Do you have indoor plumbing?: Yes Do you have electricity?: Yes Atte
[2021-04-18 19:10] VITALS: BP 140/87; PULSE 80; RESP 19; TEMP 36.9; O2SAT 98
--- NOTE | 2021-04-19 10:56 | PC.NURSE ---
PATIENT NOTIFIED OF POSITIVE COVID TEST AT THIS TIME
--- NOTE | 2021-04-20 09:38 | PC.NURSE ---
Patient notified of positive COVID result
== END 2021-04-18 19:26 | disposition home or self-care (01) ==
PROVIDERS: Emergency Provider Nurse Practitioner; PCP Internal Medicine Adolescent Medicine
DX: J02.9 Acute pharyngitis, unspecified (principal); R05 Cough; Z20.822 Contact with and (suspected) exposure to COVID-19
CPT/HCPCS: 99202; G0463; U0003

== ENCOUNTER 2021-04-24 17:41 | Emergency (ER) | payer BC, SELFPAY ==
[2021-04-24 20:05] VITALS: BP 148/87; PULSE 70; RESP 18; TEMP 36.7; O2SAT 98; BMI 31.7
--- NOTE | 2021-04-24 20:48 | HMH.EDUTC ---
[facility] Disposition Clinical Impression: COVID-19 Disposition: Home, Self-Care Condition on Discharge: Good Instructions: DI for COVID-19 (Suspected or Confirmed ), Preventing the Spread of Coronavirus Discharge Instructions Additional Instructions: Drink plenty of fluids. Take tylenol for pain or fever. Return if you begin to have difficulty breathing. Follow up with your regular doctor. GO TO THE ER FOR ANY WORSENING SYMPTOMS Quarantine until you know the results of your covid-19 test. If it is positive, the health department should call you and give you further instructions about your length of Quarantine and other things. Notify your school or workplace of your results and follow their instructions regarding return to work/school. Referrals: Javier Drake MD [Primary Care Provider] - Time of Disposition: 20:51 Medical Decision Making - Medical Records Medical records reviewed: No: I reviewed the patient's medical records. - Kody Inquiry Pt receiving controlled substance: No Vital Signs: 04/24/21 20:05 04/24/21 20:54 Temperature 98.1 F 98.1 F Temperature Source Oral Pulse Rate 70 Pulse Rate [Right Brachial] 70 Respiratory Rate 18 18 Blood Pressure 148/87 H Blood Pressure [Right Arm] 148/87 H Blood Pressure Mean [Right Arm] 107 Blood Pressure Source [Right Arm] Automatic Cuff Blood Pressure Position [Right Arm] Sitting 02 Sat by Pulse Oximetry 98 Oxygen Delivery Method Room Air - Lab Data Lab results reviewed: Yes: I reviewed the patient's lab results. [facility] HPI - General Stated complaint: covid test Time Seen by Provider: 04/24/21 20:48 Mode of Arrival: Ambulatory Source of Information: Patient Limitations: No Limitations Description of Symptoms (Recalled from Triage Doc. by RN): PATIENT NEEDING RETESTED FOR COVID, TEST POSITIVE ON 04/19 HEENT Symptoms (Recalled from RN notes): No Resp Symptoms (Recalled from RN notes): No Skin Symptoms (Recalled from RN notes): No MS Symptoms (Recalled from RN notes): No Functional Status (Recalled from RN notes): WNL - History of Present Illness Provider Complaint: He is here to have a repeat covid test. He was positive last week. He has not had symptoms or felt bad for the past couple of days. He needs a negative test to return to work. - Related Data Home Medications Medication Instructions Recorded Confirmed aspirin 81 mg tablet,delayed 81 mg PO ONCE tab 10/11/17 03/21/20 release meloxicam 7.5 mg tablet 7.5 mg PO ONCE 10/11/17 03/21/20 methotrexate sodium 2.5 mg tablet 17.5 mg PO QWEEK tab 10/11/17 03/21/20 omeprazole 20 mg capsule,delayed 20 mg PO ONCE 10/11/17 03/21/20 release rosuvastatin 20 mg tablet 20 mg PO ONCE 10/11/17 03/21/20 tamsulosin 0.4 mg capsule 0.4 mg PO ONCE 10/11/17 03/21/20 Allergies Allergy/AdvReac Type Severity Reaction Status Date / Time No Known Allergies Allergy Verified 03/21/20 15:21 - Worker's Comp Is this a Worker's Comp case?: No [facility] History - Hepatitis A Screen Drug use history?: No High risk sexual behaviors?: No History of sexually transmitted infection?: No Currently employed?: No Childcare worker?: No Do you have indoor plumbing?: Yes Do you have electricity?: Yes Attestation statement:: This patient has been screened for Hepatitis A risk factors. I have reviewed the patient's past medical history: Yes Medical History: Reports:: Diabetes Mellitus Type 2, Gastroesophageal Reflux Disease(GERD), Hyperlipidemia Denies:: MRSA, Seizures Laterality Cases: Bilateral: Carpal Tunnel Release Other Surgeries: Yes: No Previous Surgery, Cardiac Catheterization, Colonoscopy, Hernia Repair, Other Amputation: No Fractures: No - Social History Smoking Status: Former smoker # Packs/Day (cigarettes): 2 Alcohol Intake: never Alcohol Intake Frequency:: other Substance Use Type: denies use Occupational Status: employed Housing: house Household Members: spouse Eduardo
[2021-04-24 20:54] VITALS: BP 148/87; PULSE 70; RESP 18; TEMP 36.7; O2SAT 98
--- NOTE | 2021-04-25 11:25 | PC.NURSE ---
relayed positive covid results to pt
== END 2021-04-24 20:55 | disposition home or self-care (01) ==
PROVIDERS: Emergency Provider Nurse Practitioner Family; PCP Internal Medicine Adolescent Medicine
DX: U07.1 COVID-19 (principal)
CPT/HCPCS: 99202; G0463; U0003

== ENCOUNTER → 2021-10-16 10:38 | Outpatient (CLI) | payer BC, SELFPAY ==
[2021-10-16 11:28] LABS: Basophils % 0.6 % (0.1-2.0); Eosinophils # 0.1 K/mm3 (0.0-0.4); Eosinophils % 2.9 % (0.1-12.0); Hematocrit 46.3 % (42.0-52.0); Hemoglobin 15.9 g/dL (14.1-18.0); Lymphocytes # 0.9 K/mm3 (0.7-4.5); Lymphocytes % 22.8 % (10-50); Mean Corpuscular HGB Conc 34.4 g/dL (31.8-35.4); Mean Corpuscular Hemoglobin 30.7 pg (27.0-31.2); Mean Corpuscular Volume 89.3 fl (80-94); Monocytes # 0.4 K/mm3 (0.1-1.0); Monocytes % 9.8 % (1.7-9.3); Neutrophils # 2.6 K/mm3 (1.8-7.8); Platelet Count 320 K/mm3 (142-424); Red Blood Count 5.19 M/mm3 (4.60-6.20); Red Cell Distribution Width 13.6 % (11.5-17.5); White Blood Count 4.1 K/mm3 (4.8-10.8)
[2021-10-16 12:35] LABS: Chloride 102 mmol/L (98-107); Sodium 133 mmol/L (136-145)
[2021-10-16 12:38] LABS: Blood Urea Nitrogen 15 mg/dl (9-20); Calcium 8.5 mg/dl (8.4-10.2); Carbon Dioxide 26 mmol/L (22.0-30.0); Estimated Glomerular Filt Rate 116 ml/min (>60); GFR (African American) 140 ML/MIN (>60); Glucose 80 mg/dl (74-100)
== END ==
PROVIDERS: Visit Provider Surgery
DX: Z01.812 Encounter for preprocedural laboratory examination (principal); Z11.52 Encounter for screening for COVID-19; K46.9 Unspecified abdominal hernia without obstruction or gangrene
CPT/HCPCS: 36415; 80048; 85025; C9803; U0003; U0005

== ENCOUNTER 2021-10-19 06:06 | Day surgery (SDC) | payer BC, SELFPAY ==
[2021-10-15 11:31] VITALS: BMI 31.0
[2021-10-19] VITALS (11 sets, daily range): BP systolic 113–147; BP diastolic 75–96; PULSE 57–64; RESP 10–18; TEMP 36.1–43; O2SAT 90–99
--- NOTE | 2021-10-19 06:56 | P.PN_ITS ---
[facility] Anesthesia Checklist - Structural Data Admitted From: Home Planned Operative Procedure/s: inguinal hernia Consent for Planned Operative Procedure(s) Verified: Yes - Additional verifications Anesthesia Reactions: No Hx Blood Transfusions: No Blood Transfusion Reaction: No - Airway Assessment C-Spine Mobility Assessed: Yes TMJ Mobility Assessed: Yes Dentition: Good Dentition - Neurological Assessment Level of Consciousness: Awake, Alert, Appropriate - Anesthesia Plan Anesthesia Risk discussed: Yes Anesthesia Plan: Verified ASA Class: II Anesthesia Type: General [facility] History I have reviewed the patient's past medical history: Yes Medical History: Reports:: Diabetes Mellitus Type 2, Gastroesophageal Reflux Disease(GERD), Hyperlipidemia Denies:: Cancer, Internal Pacemaker, MRSA, Seizures *Have you ever received a pneumonia vaccine?: Yes *Have you received a flu vaccine this season?: No Other Medical History: Denies: Blood Transfusion Reaction Anesthesia experience/problems:: none Laterality Cases: Bilateral: Carpal Tunnel Release Other Surgeries: Yes: No Previous Surgery, Cardiac Catheterization, Colonoscopy, Hernia Repair, Other. No: Pacemaker Amputation: No Fractures: No - *Social History Last grade of school completed: High school graduate Smoking Status: Former smoker # Packs/Day (cigarettes): 2 Alcohol Intake: never Alcohol Intake Frequency:: other Substance Use Type: denies use *Occupational Status:: employed Housing: house Household Members: spouse *Travel in the last 8 weeks: None Family Hx:: Coronary Artery Disease, Heart Attack, Cancer
--- NOTE | 2021-10-19 09:02 | HMH.OPNOTE ---
Date of procedure: 10/19/21 Pre-op Diagnosis:: Left inguinal hernia Post-op Diagnosis:: Same Procedure performed:: Open repair of left inguinal hernia with placement of large sized Bard prefix mesh Surgeon:: Troy Tapia MD [employer] SUPERVISOR:: Luis Miguel Shine Anesthesia: GETA Estimated blood loss (mL): 15 Clinical Note:: Patient is a 60-year-old male from [place] referred by Dr. Javier Drake for hernia. He describes symptoms in the left inguinal area. He has had some symptoms for about 5 to 6 years. However he has had increasing swelling knot and increasing pain. He states that he has more symptoms when he is walking and on his feet for longer periods of time. Of note, the patient did have an open supraumbilical hernia repair done about 10 or 15 years ago. He had laparoscopic robotic prostatectomy about 3 years ago. On examination patient was found to have a palpable left inguinal hernia. Options were discussed. Plan was made for open left inguinal hernia repair. Operative findings:: He had a moderate indirect left inguinal hernia Operative note:: Patient was taken to the operating room. He was given preoperative intravenous antibiotic. In the operating room he was placed in the supine position. General anesthesia was induced via endotracheal tube. His lower abdomen and perineum were prepped and draped in the standard surgical fashion. He was positioned in slight Trendelenburg position. Landmarks were identified. Oblique incision was made in the left inguinal area superior to landmarks identifying the inguinal ligament. Dissection was carried down through subcutaneous tissues and Ever's fascia using electrocautery. External oblique muscle was cleaned free. Extra oblique muscle was opened along the length of its fibers to the external ring. Ilioinguinal nerve was identified and preserved. Cord structures were dissected free from the inguinal floor and encircled with a Eden drain. Dissection was carried out identifying a hernia sac. This was an indirect hernia. This was dissected free from the cord structures. There was concern that this could be a sliding hernia. Hernia sac was therefore not open but the hernia was able to be reduced easily. Large sized Bard prefix mesh plug was inserted into the region of the internal ring, lateral to the cord structures, at the site of the defect. It was secured to shelving edge of the inguinal ligament and to transversalis muscle with a couple of 2-0 PDS sutures. The onlay mesh was then secured to the floor of the inguinal canal suturing it to the Bernardo's ligament with a running 2-0 PDS along the shelving edge of the inguinal ligament in the inferolateral position. It was secured superomedially to the transversalis fascia with interrupted 2-0 PDS horizontal mattress sutures. The 2 leaves of the mesh were used to encircle the cord structures and reconstruct the internal ring. There were sutured to 1 another with interrupted 2-0 PDS sutures. Repair appeared adequate. There was good hemostasis. Local anesthetic was infiltrated into the deep tissues as well as for an inguinal nerve block. Cord structures and nerve were returned to the normal anatomic position. External oblique muscle was closed over the cord structures with a running 2-0 Vicryl. Ever's fascia was closed with a running 2-0 Vicryl. Skin was closed with 4-0 Monocryl in a running subcuticular fashion. Steri-Strips and dressings were applied. Condition: stable Disposition: PACU Complications:: None immediate
--- NOTE | 2021-10-19 09:03 | P.PN_ITS ---
[facility] Anesthesia Record Part I Intake, IV Amount: 700 Estimated blood loss (mL): 5 Urine output (mL): 100 Blood Pressure: 115/81 SaO2: 90 Pulse Rate: 62 Respiratory Rate: 10 Temperature: 98.5 F Patient is:: Drowsy, Oral/Nasal airway Stable to PACU at:: 09:01
[2021-10-19 09:15] LABS: POC Glucose,Bedside 125 (70-110)
--- NOTE | 2021-10-19 09:16 | PC.NURSE ---
0906-checked fsbs with results of 125, notified LEORA Potts with no new orders at this time
--- NOTE | 2021-10-19 09:36 | PC.NURSE ---
0929-detailed report called to SHAWN Downing 0931-pt transported to post op via stretcher w/michelle rails up and left in care of SHAWN Downing with bed locked in lowest position, vss, pt stable
[2021-10-19 16:03] LABS: Microscopic,Cath URINE MICROSCOPIC (MICROSCOPIC)
[2021-10-19 19:15] LABS: Appearance,Urine/Cath CLEAR (Clear); Bilirubin,Cath Negative (Negative); Blood, Urine/Cath Negative (Negative); Color,Urine/Cath YELLOW (Yellow); Glucose,Urine/Cath (UA) Negative (Negative); Ketones,Urine/Cath Negative (Negative); Leukocyte Esterase,Cath Negative (Negative); Nitrate,Cath Negative (Negative); Protein,Urine/Cath Negative (Negative); Specific Gravity, Urine/Cath >= 1.030 (1.005-1.030); Urobilinogen,Cath 0.2 EU/dl (0.2)
[2021-10-19 20:52] LABS: Squamous Epithelial Ur./Cath Occasional #/hpf (0-5); WBC,Urine/Cath Occasional #/hpf (0-3)
[2021-10-20 07:16] VITALS: BP 138/75; PULSE 62; TEMP 36.6
--- NOTE | 2021-10-20 07:16 | P.PN_ITS ---
[facility] Anesthesia Record Part II Discharge Time: 09:31 Destination: Surgical Day Care (OP Surgery) PACU nurse assessment reviewed?: Yes Patient Condition:: Good Anesthesia Complications:: None Swallowing reflex intact?: Yes Cyanosis?: No Blood Pressure: 138/75 Pulse Rate: 62 Temperature: 97.9 F Mental Status: Alert & Oriented Pain level:: 0 Nausea and/or vomitting:: None Intake, IV Amount: 0
== END 2021-10-19 10:41 | disposition home or self-care (01) ==
LOC: OR 06:09
PROVIDERS: PCP Internal Medicine Adolescent Medicine; Visit Provider Surgery
PROC: (CPT 49505; principal; 2021-10-19 07:30)
DX: K40.90 Unilateral inguinal hernia, without obstruction or gangrene, not specified as recurrent (principal); E11.9 Type 2 diabetes mellitus without complications
CPT/HCPCS: 49505; 81001; 82962; 96374; J0131; J2405

== ENCOUNTER → 2021-11-03 09:57 | Outpatient (CLI) | payer BC, SELFPAY ==
--- NOTE | 2021-11-03 10:02 | XR_ITS ---
FINAL REPORT CLINICAL HISTORY: LT SACROILIAC JOINT PAIN, no recent injury, pain x 2 mos FINDINGS: 5 views of the lumbar spine were obtained. There is no evidence of fracture or dislocation. The vertebral alignment is normal. There is mild degenerative change. There is facet arthropathy in the mid and lower lumbar spine. There is mild degenerative change of the SI joints. No paraspinous soft tissue abnormalities identified. IMPRESSION: Mild degenerative change. Reviewed, Interpreted and Dictated by Troy De La Rosa III, MD Transcribed by Jj Pitts Authenticated by Troy De La Rosa III, MD on 11/03/2021 11:17:08 AM [facility]
== END ==
PROVIDERS: PCP Internal Medicine Adolescent Medicine; Visit Provider Internal Medicine Adolescent Medicine
DX: M53.3 Sacrococcygeal disorders, not elsewhere classified (principal)
CPT/HCPCS: 72110

== ENCOUNTER → 2021-11-23 12:45 | Outpatient (POV) | payer BC, SELFPAY ==
[2021-11-23 13:00] VITALS: BP 134/80; PULSE 95; RESP 18; TEMP 36.9; O2SAT 97; BMI 31.0
--- NOTE | 2021-11-23 16:00 | HMH.PMCON ---
Assessment and Plan (1) Sacroiliitis Status: Acute Category: Medical Code(s): M46.1 - Sacroiliitis, not elsewhere classified - Assessment and plan all Dx Assessment and Plan for all problems:: Patient has been having chronic left SI pain in the last few months. He has tried 2 rounds of steroids, meloxicam, Tylenol arthritis, and Flexeril with no relief of symptoms. Patient states that his pain starts around his left upper buttock that radiates down to his thigh and does not cross his left knee. Patient cannot tolerate any prolonged activity such as sitting, standing, and walking. His left SI is positive for ELICIA, Jake's, [place]'s, [place]'s, compression, and distraction. Based on this presentation, patient has left sacroiliitis. I will schedule the patient for a left SI injection. Risks and benefits of the procedure have been explained to the patient. Patient would like to proceed with the procedure. We will have to monitor his sugar during the procedure. Patient has been instructed to contact the clinic with any concerns before the next appointment. Dr. George has reviewed this note and agrees with this plan of care. This note was dictated using voice recognition software and make contain errors or omissions. HPI - Data of Consult Consult date: 11/23/21 Requesting Physician: GUANAKO Hedrick - Consult Narrative Reason for consult: Left hip pain History of present illness: Mr. Holder is a 60 year old male presents today as a new patient. Patient is referred by Dr. Darell Ortiz for left hip/SI pain. Patient presents today with worsening left hip/SI pain that has been going on for several months. Patient denies any recent falls or traumas. Patient says that his pain originates from his left upper buttock that radiates down to his left thigh and does not cross his left knee. This is worse with any prolonged activity such as sitting, standing, and walking. Patient has trouble getting up from a sitting position. Patient denies any loss of bowel and bladder functions. For pain management, patient says that he has tried 2 rounds of steroids which seemed to help for 2 to 3 days. Patient is also taking Tylenol arthritis 650 mg 4 times a day. He is also on Flexeril 10 mg once a day and meloxicam 15 mg daily. Patient says that some of these medications are helping manage his pain but he is still unable to increase his activity. Patient rates his pain today as 9 out of 10. He was tried on [place] 5 mg by Troy Tapia which did not help. [facility] #[id number] with an active morphine equivalent of 0. CC: GUANAKO Hedrick [facility] History I have reviewed the patient's past medical history: Yes Medical History: Reports:: Diabetes Mellitus Type 2, Gastroesophageal Reflux Disease(GERD), Hyperlipidemia, Hypertension Denies:: Cancer, Diabetes Mellitus Type 1, Internal Pacemaker, MRSA, Seizures *Have you ever received a pneumonia vaccine?: No *Have you received a flu vaccine this season?: No Other Medical History: Denies: Blood Transfusion Reaction Laterality Cases: Bilateral: Carpal Tunnel Release Other Surgeries: Yes: No Previous Surgery, Cardiac Catheterization, Colonoscopy, Hernia Repair, Other. No: Pacemaker Amputation: No Fractures: No - *Social History Smoking Status: Former smoker # Packs/Day (cigarettes): 2 Alcohol Intake: never Alcohol Intake Frequency:: other Substance Use Type: denies use *Occupational Status:: employed Housing: house Household Members: spouse *Travel in the last 8 weeks: None Family Hx:: Coronary Artery Disease, Heart Attack, Cancer Review of Systems - Review of Systems Review of Systems: General: No recent weight changes, no fever, no sleep disturbances Respiratory: No cough, no shortness of air, no recurring pulmonary infections Cardiovascular/peripheral vascular: No chest pain, no palpitations, no edema, no shortness of breath Gastrointestinal: No new onset incontinence, normal bowel movemen
== END ==
PROVIDERS: Visit Provider Student in an Organized Health Care Education/Training Program
DX: M46.1 Sacroiliitis, not elsewhere classified (principal)
CPT/HCPCS: 99202; G0463

== ENCOUNTER 2021-12-04 07:53 | Day surgery (SDC) | payer BC, SELFPAY ==
[2021-12-04 08:02] VITALS: BP 125/84; PULSE 77; RESP 20; TEMP 36.9; O2SAT 98; BMI 31.0
[2021-12-04 08:14] VITALS: BP 147/81; PULSE 69; RESP 20; O2SAT 98
[2021-12-04 08:15] VITALS: BP 113/84; BP 148/69; PULSE 69; PULSE 83; RESP 20; TEMP 36.9; O2SAT 96; O2SAT 97
--- NOTE | 2021-12-04 08:22 | HMH.PMPROC ---
- Procedure Date: 12/04/21 Time: 08:00 Anesthesiologist:: Jasson Dunbar CRNA Complications:: None Pre-procedure Diagnosis:: Sacroiliitis. Post-procedure Diagnosis:: same Indications for Procedure:: Patient is a very pleasant 60-year-old white male that is having left SI joint pain. Patient describes the pain as constant, dull, aching. He rates the pain 7/10. Patient states pain is worse when sitting or standing for long periods of time. Walking causes increase in pain. He presents today for left SI joint injection. Procedure Details:: The procedure explained to the patient. The patient was taken the procedure room placed on the fluoroscopy table in the prone position. The area over the left SI joint cleansed using chlorhexidine as a cleansing solution. Under live fluoroscopy guidance a 22-gauge spinal needle was placed into the lower one third of the left SI joint. After negative aspiration. 3 cc of 1% lidocaine and 40 mg of Depo-Medrol was injected. Needle was removed. Band-Aid applied. Patient tolerated the procedure without difficulty. There were no complications. 10 minutes post action patient was 100% pain-free in terms of his left posterior hip pain. Plan and Disposition:: Patient will return for follow-up visit in our clinic. He was discharged home with no complications.
== END 2021-12-04 08:25 | disposition home or self-care (01) ==
LOC: SC.PAINP 07:54
PROVIDERS: PCP Internal Medicine Adolescent Medicine; Visit Provider Nurse Anesthetist, Certified Registered
DX: M46.1 Sacroiliitis, not elsewhere classified (principal); E11.9 Type 2 diabetes mellitus without complications; K21.9 Gastro-esophageal reflux disease without esophagitis; E78.5 Hyperlipidemia, unspecified; I10 Essential (primary) hypertension; Z87.891 Personal history of nicotine dependence; Z82.3 Family history of stroke; Z80.9 Family history of malignant neoplasm, unspecified; Z82.49 Family history of ischemic heart disease and other diseases of the circulatory system
CPT/HCPCS: 27096; G0260; J1040

== ENCOUNTER → 2021-12-24 14:49 | Outpatient (POV) | payer BC, SELFPAY ==
[2021-12-24 15:05] VITALS: BP 136/82; PULSE 82; RESP 18; TEMP 36.8; O2SAT 98; BMI 30.7
--- NOTE | 2021-12-24 17:16 | HMH.PAINSOAP ---
[facility] Pain Management SOAP Note Subjective:: Patient is a pleasant 61-year-old male who presents today for follow-up after a left-sided SI injection on December 04, 2021. After the procedure, patient had significant relief of 100% that lasted for 2 weeks. He states that he was able to increase his activity for 2 weeks. He did start to have some pain a couple of days ago but it is not as severe as before. He states that he is now around 2-3 out of 10 pain compared to 8 out of 10 before. The only pain he has now is whenever he gets up from a sitting position. He has been able to increase his walking distance but starts to have pain when he walks farther. [facility] #[id number] with an active morphine equivalent of 0. Review of Systems: General: No recent weight changes, no fever, no sleep disturbances Respiratory: No cough, no shortness of air, no recurring pulmonary infections Cardiovascular/peripheral vascular: No chest pain, no palpitations, no edema, no shortness of breath Gastrointestinal: No new onset incontinence, normal bowel movements reported Genitourinary: No new onset incontinence Musculoskeletal: Left hip pain Psychiatric: [Normal mood/affect] Neurological: [Denies weakness in extremities], [denies balance issues] Objective:: Physical Exam: General: Alert and oriented x3, no acute distress, pleasant and cooperative Lungs: Respirations even and unlabored, symmetrical chest expansion Eyes: PERRL Musculoskeletal: Left SI is positive for ELICIA, Jake's, [place]'s, Gaenslen's, compression, and distraction. Neurological: Speech clear, no gross sensory deficit Assessment:: Left-sided sacroiliitis Plan:: Patient had significant relief of 100% after his left SI injection that lasted for 2 weeks. He feels like his pain is starting to come back but it is a lot more tolerable than before. He is in a constant 2-3 out of 10. It is more painful when he gets up from a sitting position. Left SI is positive for ELICIA, Jake's, [place]'s, [place]'s, compression, and distraction. We will schedule the patient for a repeat left SI injection. Risks and benefits of the procedure have been explained to the patient. Patient would like to proceed with the procedure. Patient has been instructed to contact the clinic with any concerns before the next appointment. Dr. George has reviewed this note and agrees with this plan of care. This note was dictated using voice recognition software and make contain errors or omissions. [facility] History Medical History: Reports:: Diabetes Mellitus Type 2, Gastroesophageal Reflux Disease(GERD), Hyperlipidemia, Hypertension Denies:: Cancer, Diabetes Mellitus Type 1, Internal Pacemaker, MRSA, Seizures *Have you ever received a pneumonia vaccine?: No *Have you received a flu vaccine this season?: No Other Medical History: Reports: Arthritis. Denies: Blood Transfusion Reaction Laterality Cases: Bilateral: Carpal Tunnel Release Other Surgeries: Yes: No Previous Surgery, Cardiac Catheterization, Colonoscopy, Hernia Repair, Other. No: Pacemaker Amputation: No Fractures: No - *Social History Smoking Status: Former smoker # Packs/Day (cigarettes): 2 Alcohol Intake: never Alcohol Intake Frequency:: other Substance Use Type: denies use *Occupational Status:: employed Housing: house Household Members: spouse *Travel in the last 8 weeks: None Family Hx:: Coronary Artery Disease, Heart Attack, Cancer
== END ==
PROVIDERS: Visit Provider Student in an Organized Health Care Education/Training Program
DX: M46.1 Sacroiliitis, not elsewhere classified (principal)
CPT/HCPCS: 99212; G0463

== ENCOUNTER → 2022-01-28 14:37 | Outpatient (POV) | payer BC, SELFPAY ==
[2022-01-28 14:40] VITALS: BP 154/90; PULSE 62; RESP 18; TEMP 36.7; O2SAT 98; BMI 29.5
--- NOTE | 2022-01-28 16:02 | P.CONS_ITS ---
[facility] Pain Management SOAP Note Subjective:: Patient is a pleasant 61-year-old male who presents today for follow-up. Patient is current being treated for left-sided sacroiliitis. We have been managing this patient with injective therapy. His last SI injection was on December 04, 2021 that provided 100% relief that lasted for about 2 weeks. When I saw this patient last time, he states that his pain is a lot more tolerable. He does not have any more pain whenever he sits down and stands for long periods of time. He only has pain now whenever he starts squatting and with extremely prolonged walking. 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 I did schedule the patient for a repeat left SI injection to see if t his would help prolong his relief. However, this was denied by his insurance. His insurance wants us to schedule the patient is forced injections with 3 months apart. He rates his pain today as 0 out of 10. [facility] [id number] with an active morphine equivalent of 0. Review of Systems: General: No recent weight changes, no fever, no sleep disturbances Respiratory: No cough, no shortness of air, no recurring pulmonary infections Cardiovascular/peripheral vascular: No chest pain, no palpitations, no edema, no shortness of breath Gastrointestinal: No new onset incontinence, normal bowel movements reported Genitourinary: No new onset incontinence Musculoskeletal: Improving left hip pain Psychiatric: [Normal mood/affect] Neurological: [Denies weakness in extremities], [denies balance issues] Objective:: Physical Exam: General: Alert and oriented x3, no acute distress, pleasant and cooperative Lungs: Respirations even and unlabored, symmetrical chest expansion Eyes: PERRL Musculoskeletal: Flexion and extension of left hip somewhat guarded secondary to pain, [antalgic gait noted] Neurological: Speech clear, no gross sensory deficit Assessment:: Left-sided sacroiliitis Plan:: Will follow up with this patient in 2 months to see if he needs repeat left SI injection. Patient will continue to do home exercises until then. Patient has been instructed to contact the clinic with any concerns before the next appointment. Dr. George has reviewed this note and agrees with this plan of care. This note was dictated using voice recognition software and make contain errors or omissions. [facility] History Medical History: Reports:: Diabetes Mellitus Type 2, Gastroesophageal Reflux Disease(GERD), Hyperlipidemia, Hypertension Denies:: Cancer, Diabetes Mellitus Type 1, Internal Pacemaker, MRSA, Seizures *Have you ever received a pneumonia vaccine?: No *Have you received a flu vaccine this season?: No Other Medical History: Reports: Arthritis. Denies: Blood Transfusion Reaction Laterality Cases: Bilateral: Carpal Tunnel Release Other Surgeries: Yes: No Previous Surgery, Cardiac Catheterization, Colonoscopy, Hernia Repair, Other. No: Pacemaker Amputation: No Fractures: No - *Social History Smoking Status: Former smoker # Packs/Day (cigarettes): 2 Alcohol Intake: never Alcohol Intake Frequency:: other Substance Use Type: denies use *Occupational Status:: employed Housing: house Household Members: spouse *Travel in the last 8 weeks: None Family Hx:: Coronary Artery Disease, Heart Attack, Cancer
== END ==
PROVIDERS: Visit Provider Student in an Organized Health Care Education/Training Program
DX: M46.1 Sacroiliitis, not elsewhere classified (principal)
CPT/HCPCS: 99212; G0463

== ENCOUNTER → 2022-03-29 14:34 | Outpatient (POV) | payer BC, SELFPAY ==
--- NOTE | 2022-03-29 15:05 | HMH.PAINSOAP ---
[facility] Pain Management SOAP Note Subjective:: Patient is a pleasant 61-year-old male who presents today for follow-up. We are currently treating the patient for left-sided sacroiliitis. We have been managing this patient with injective therapy. His last injection was December 04, 2021 that provided 100% relief lasting for about 2 weeks. Patient is rating his pain a 1 out of 10 today. He is stating it is all in his left SI region and describes it as a ache that is intermittent with increased activity. Patient works a very physical job where he walks 12 to 15 miles a day. Patient states that his pain started to worsen since his last injection. Patient has tried [id number] medications such as Tylenol, ibuprofen with minimal relief. He has also tried prescriptions strength compounding cream in the past with some relief however he no longer has this prescription. He has tried [id number] topical medication such as Biofreeze with minimal relief. He is interested in scheduling a repeat injection at today's visit. His Kody is [id number]. It has been reviewed and appropriate. Review of Systems: General: No recent weight changes, no fever, no sleep disturbances Respiratory: No cough, no shortness of air, no recurring pulmonary infections Cardiovascular/peripheral vascular: No chest pain, no palpitations, no edema, no shortness of breath Gastrointestinal: No new onset incontinence, normal bowel movements reported Genitourinary: No new onset incontinence Musculoskeletal: Low back pain left upper thigh pain Psychiatric: [Normal mood/affect] Neurological: [Denies weakness in extremities], [denies balance issues] Objective:: Physical Exam: General: Alert and oriented x3, no acute distress, pleasant and cooperative Lungs: Respirations even and unlabored, symmetrical chest expansion Eyes: PERRL Musculoskeletal: Flexion and extension of lumbar [spine] somewhat guarded secondary to pain, [antalgic gait noted]. Point tenderness along left lumbar spine. Positive Deepika's, Gaenslen's, compression, distraction exam Neurological: Speech clear, no gross sensory deficit Assessment:: Left sacroiliitis Plan:: Patient has worsening left SI pain. Patient has had injective therapy in the past that provided 100% relief. Patient had a positive point tenderness along his left lumbar spine. Patient had a positive left Deepika's, Gaenslen's, compression, distraction exam during today's visit. I have discussed with the patient regarding repeat left SI injections. Risk and benefits were discussed with the patient. He would like to proceed forward with this injection. I will order the patient a compounding cream at today's visit. We will schedule the patient for a left SI injection. Patient has been instructed to contact the clinic with any concerns before the next appointment. Dr. George has reviewed this note and agrees with this plan of care. This note was dictated using voice recognition software and make contain errors or omissions. [facility] History I have reviewed the patient's past medical history: Yes Medical History: Reports:: Diabetes Mellitus Type 2, Gastroesophageal Reflux Disease(GERD), Hyperlipidemia, Hypertension Denies:: Cancer, Diabetes Mellitus Type 1, Internal Pacemaker, MRSA, Seizures *Have you ever received a pneumonia vaccine?: No *Have you received a flu vaccine this season?: No Other Medical History: Reports: Arthritis. Denies: Blood Transfusion Reaction Laterality Cases: Bilateral: Carpal Tunnel Release Other Surgeries: Yes: No Previous Surgery, Cardiac Catheterization, Colonoscopy, Hernia Repair, Other. No: Pacemaker Amputation: No Fractures: No - *Social History Smoking Status: Former smoker # Packs/Day (cigarettes): 2 Alcohol Intake: never Alcohol Intake Frequency:: other Substance Use Type: denies use *Occupational Status:: employed Housing: house Household Members: spouse *Travel in the last 8 weeks: Inside the [facility]
[2022-03-29 15:17] VITALS: BP 137/87; PULSE 73; RESP 20; TEMP 36.9; O2SAT 97; BMI 31.0
== END ==
PROVIDERS: PCP Internal Medicine Adolescent Medicine; Visit Provider Student in an Organized Health Care Education/Training Program
DX: M46.1 Sacroiliitis, not elsewhere classified (principal); M19.90 Unspecified osteoarthritis, unspecified site
CPT/HCPCS: 99212; G0463

== ENCOUNTER → 2022-12-09 13:59 | Outpatient (POV) | payer BC, SELFPAY ==
--- NOTE | 2022-12-09 14:23 | EXP.PAIN.SOA ---
[facility] Pain Management SOAP Note Subjective:: Patient is a pleasant 61-year-old male who presents today for follow-up. We are currently treating the patient for left-sided sacroiliitis, low back pain. Today he rates his pain a 2 out of 10. Patient denies any new trauma or injury. He does state that he continues to have pain in his low back along his left SI. Patient has had previous SI injections that provided 100% relief lasting 3 weeks. Patient does describe his pain as a aching, throbbing sensation that is worse with increased activity. He does state that he does notice his pain worse with wet or cold weather or positioning such as going up stairs or sitting with pressure on his left side. Patient does have a very physically demanding job where he typically walks up to 15 miles per day. Patient does state his pain interferes with his ability to perform activities of daily living such as cooking and cleaning. Prolonged sitting, standing, walking aggravates his symptoms. Patient does use Tylenol arthritis with some improvement. He is on meloxicam 15 mg daily however he states he has not noticed significant improvement and has been on this for years. Patient is prescribed compounding cream that does provide some additional improvement. At his last visit he did try and schedule a repeat SI injection however this was denied by insurance. His Kody is [id number]. He is not on any scheduled medications it has been reviewed and appropriate. Review of Systems: General: No recent weight changes, no fever, no sleep disturbances Respiratory: No cough, no shortness of air, no recurring pulmonary infections Cardiovascular/peripheral vascular: No chest pain, no palpitations, no edema, no shortness of breath Gastrointestinal: No new onset incontinence, normal bowel movements reported Genitourinary: No new onset incontinence Musculoskeletal: Low back pain Psychiatric: [Normal mood/affect] Neurological: [Denies weakness in extremities], [denies balance issues] Objective:: Physical Exam: General: Alert and oriented x3, no acute distress, pleasant and cooperative Lungs: Respirations even and unlabored, symmetrical chest expansion Eyes: PERRL Musculoskeletal: Flexion and extension of lumbar [spine] somewhat guarded secondary to pain, [antalgic gait noted] extreme point tenderness along left SI with positive left Deepika's, Jake's, Gaenslen's, compression and distraction exam Neurological: Speech clear, no gross sensory deficit Assessment:: Low back pain, sacroiliitis Plan:: Patient is experiencing severe pain in his low back along the left side with certain movements and activities such as prolonged sitting, standing, walking. Patient did have limited range of motion of his lumbar spine along with extreme point tenderness at his left SI with positive left Deepika's, Jake's, Gaenslen's, compression and distraction exam. I have discussed with the patient that he may benefit from a repeat left SI injection. Risk and benefits were discussed with the patient and he would like to proceed forward with this plan of care. Patient has had previous injections that provided upwards of 100% relief lasting almost 1 month. Patient has tried and failed conservative therapies such as oral medications, heat and ice, topicals, physical therapy and at home exercising and stretching for longer than 6 weeks. Patient has been experiencing this pain for longer than 6 months. I have also discussed with the patient regarding discontinuing his meloxicam and starting him on diclofenac 75 mg twice daily. I will send in a 2-week supply of this medication. We will schedule him for a left SI injection. Patient has been instructed to contact the clinic with any concerns before the next appointment. Dr. George has reviewed this note and agrees with this plan of care. This note was dictated using voice recognition software and make contain errors or omissions. [facility] Disclaimer: The information
[2022-12-09 14:40] VITALS: BP 126/82; PULSE 70; RESP 20; BMI 32.5
== END | disposition home or self-care (01) ==
PROVIDERS: PCP Internal Medicine Adolescent Medicine; Visit Provider Nurse Practitioner Family
DX: M46.1 Sacroiliitis, not elsewhere classified (principal); M54.50 Low back pain, unspecified
CPT/HCPCS: 99212; G0463

== ENCOUNTER 2022-12-14 13:56 | Day surgery (SDC) | payer BC, SELFPAY ==
[2022-12-14 14:10] VITALS: BP 121/73; PULSE 73; RESP 18; TEMP 36.8; O2SAT 96; BMI 32.5
[2022-12-14 14:26] VITALS: BP 144/86; PULSE 77; RESP 18; O2SAT 96
--- NOTE | 2022-12-14 14:26 | EXP.PAIN.PRO ---
Procedure Date: 12/14/22 Time: 14:26 Anesthesiologist:: Jasson Dunbar CRNA Complications:: None Pre-procedure Diagnosis:: Left sacroiliitis Post-procedure Diagnosis:: Same Indications for Procedure:: Very pleasant 61-year-old male that comes our clinic today for left sacroiliac joint injection. He has extreme point tenderness over the left sacroiliac joint. He has positive Deepika's test on the left. Positive left sacroiliac joint compression test. He rates his pain 7/10. Patient has had this injection in the past with significant improvement terms of his left posterior hip pain. Procedure Details:: Procedure: Left sacroiliac injection under fluoroscopy Informed consent was obtained and the risk and benefits of the procedure were explained to the patient.~ The patient was taken to the procedure room and noninvasive monitors were placed including noninvasive blood pressure cuff and pulse oximeter.~ The patient was placed prone on the procedure table.~ The~ left hip was cleansed using Betadine as a cleansing solution.~ C-arm fluorosocpy was used to view the left SI joint.~ The skin and subcutaneous tissues were anesthetized using Lidocaine 1.5% and a 25-gauge needle.~ After this, a 22-gauge spinal needle was inserted under fluoroscopic guidance into the inferior aspect of the left SI joint.~ Omnipaque dye was injected and a good spread was seen throughout the joint.~ After this, approximately 5 mL of bupivacaine 0.25% and Depo-Medrol 40 mg was incrementally injected into the sacroiliac joint.~ The patient tolerated the procedure well with no complications.~ The patient was observed in the Pain Clinic for a period of 30-45 minutes, then discharged home neurologically intact.~ Plan and Disposition:: Patient was discharged without incident.
== END 2022-12-14 14:26 | disposition home or self-care (01) ==
PROVIDERS: PCP Internal Medicine Adolescent Medicine; Visit Provider Nurse Anesthetist, Certified Registered
DX: M46.1 Sacroiliitis, not elsewhere classified (principal)
CPT/HCPCS: 27096; G0260; J1040

== ENCOUNTER → 2023-01-03 14:38 | Outpatient (POV) | payer BC, SELFPAY ==
--- NOTE | 2023-01-03 14:51 | A.OFFVIS_ITS ---
[facility] Pain Management SOAP Note Subjective:: Patient is a pleasant 62-year-old male who presents today for follow-up of left SI injection on 12/14/2022. We are currently treating the patient for left-sided sacroiliitis and low back pain. Today he rates his pain a 2 out of 10. Patient states that he has had at least 90% improvement. He states the only pain he now has is when he sits and chairs such as hard plastic and after a little while he has to get up and readjust. He states he will occasionally have like a sudden jab however it is short-lived and goes away. Patient states he has been able to increase his activity with decreased pain symptoms. He states his overall function is much better. Previously he states his pain would frequently bring him to tears and he states he cannot get over how much of a difference this injection has made. Patient does use meloxicam 15 mg daily along with compounding cream. Patient is not on any scheduled medications. His Kody is [id number]. Its been reviewed and appropriate. Review of Systems: General: No recent weight changes, no fever, no sleep disturbances Respiratory: No cough, no shortness of air, no recurring pulmonary infections Cardiovascular/peripheral vascular: No chest pain, no palpitations, no edema, no shortness of breath Gastrointestinal: No new onset incontinence, normal bowel movements reported Genitourinary: No new onset incontinence Musculoskeletal: Low back pain Psychiatric: [Normal mood/affect] Neurological: [Denies weakness in extremities], [denies balance issues] Objective:: Physical Exam: General: Alert and oriented x3, no acute distress, pleasant and cooperative Lungs: Respirations even and unlabored, symmetrical chest expansion Eyes: PERRL Musculoskeletal: Flexion and extension of lumbar [spine] somewhat guarded secondary to pain, [antalgic gait noted] Neurological: Speech clear, no gross sensory deficit Assessment:: Left-sided sacroiliitis, low back pain Plan:: Patient has been instructed to contact the clinic with any concerns before the next appointment. Dr. George has reviewed this note and agrees with this plan of care. This note was dictated using voice recognition software and make contain errors or omissions.Patient has had significant improvement of his pain symptoms following his left SI injection and does not require any additional injective therapy. Patient will return to clinic in 1 month for reevaluation of symptoms and plan of care. Patient has been instructed to contact the clinic with any concerns before the next appointment. Dr. George has reviewed this note and agrees with this plan of care. This note was dictated using voice recognition software and make contain errors or omissions. [facility] Disclaimer: The information contained in this section may have been updated after the patient was seen, as this information can be updated by other users. Social History Smoking Status: Former smoker alcohol intake: never substance use type: denies use current occupational status: other Travel in the last 8 weeks: None household members: spouse housing: house current occupation: [employer] current occupational exposures/hazards: Yes caffeine: Yes
[2023-01-03 15:46] VITALS: BP 129/92; PULSE 71; RESP 18; O2SAT 98; BMI 31.3
== END ==
PROVIDERS: PCP Internal Medicine Adolescent Medicine; Visit Provider Nurse Practitioner Family
DX: M46.1 Sacroiliitis, not elsewhere classified (principal); M54.50 Low back pain, unspecified
CPT/HCPCS: 99212; G0463

== ENCOUNTER → 2023-02-03 14:04 | Outpatient (POV) | payer BC, SELFPAY ==
--- NOTE | 2023-02-03 14:37 | EXP.PAIN.SOA ---
[facility] Pain Management SOAP Note Subjective:: Patient is a pleasant 8-year-old male who presents today for follow-up. We are currently treating the patient for left-sided sacroiliitis and low back pain. Today he rates his pain a 4 out of 10. Patient denies any new trauma or injury. Patient denies any change to location or type of pain he experiences. He is stating that he is starting to experience worsening pain in his low back along the left side with radiating symptoms into his left hip. Patient does describe this as an aching, throbbing sensation that is worse with increased activity. He states he frequently cannot tolerate prolonged sitting, standing or walking due to the pain. He also states it does interfere with the ability to perform activities of daily living such as cooking and cleaning. He is prescribed cyclobenzaprine 10 mg 3 times daily as needed and states he will use this on bad days however it does cause significant grogginess the next day so he only takes it on the weekends. Patient has had multiple left SI injections in the past and had significant improvement of at least 90%. Patient is currently managed with meloxicam 15 mg daily and compounding cream. He denies any side effects from these medications. His Kody is [id number]. Its been reviewed and appropriate. Review of Systems: General: No recent weight changes, no fever, no sleep disturbances Respiratory: No cough, no shortness of air, no recurring pulmonary infections Cardiovascular/peripheral vascular: No chest pain, no palpitations, no edema, no shortness of breath Gastrointestinal: No new onset incontinence, normal bowel movements reported Genitourinary: No new onset incontinence Musculoskeletal: Low back pain left-sided, left hip pain Psychiatric: [Normal mood/affect] Neurological: [Denies weakness in extremities], [denies balance issues] Objective:: Physical Exam: General: Alert and oriented x3, no acute distress, pleasant and cooperative Lungs: Respirations even and unlabored, symmetrical chest expansion Eyes: PERRL Musculoskeletal: Flexion and extension of lumbar [spine] somewhat guarded secondary to pain, [antalgic gait noted] extreme point tenderness noted along left SI with positive left Deepika's, Jake's, Gaenslen's, compression and distraction exam Neurological: Speech clear, no gross sensory deficit Assessment:: Chronic left sacroiliitis, low back pain Plan:: Patient continues to experience significant pain in his low back along the left side with radiating symptoms into his left hip. Patient does have chronic sacroiliitis and has gotten significant improvement with previous SI injections of more than 90% relief. I have discussed with the patient that he may benefit from a repeat left SI injection. Risk and benefits were discussed with the patient and he would like to proceed forward with this plan of care. I will refill his meloxicam 15 mg daily and provide a 3-month supply of this medication. I will discuss with the patient at later visits that he may be a beneficial candidate for a left SI stabilization procedure. Patient will be scheduled for a left SI injection. Patient has been instructed to contact the clinic with any concerns before the next appointment. Dr. George has reviewed this note and agrees with this plan of care. This note was dictated using voice recognition software and make contain errors or omissions. [facility] Disclaimer: The information contained in this section may have been updated after the patient was seen, as this information can be updated by other users. Social History Smoking Status: Former smoker alcohol intake: never substance use type: denies use current occupational status: other Travel in the last 8 weeks: None household members: spouse housing: house current occupation: [employer] current occupational exposures/hazards: Yes caffeine: Yes
[2023-02-03 14:44] VITALS: BP 126/81; PULSE 68; RESP 18; O2SAT 97; BMI 31.0
== END | disposition home or self-care (01) ==
PROVIDERS: PCP Internal Medicine Adolescent Medicine; Visit Provider Nurse Practitioner Family
DX: M46.1 Sacroiliitis, not elsewhere classified (principal); M54.50 Low back pain, unspecified
CPT/HCPCS: 99212; G0463

== ENCOUNTER 2023-03-08 08:58 | Day surgery (SDC) | payer BC, SELFPAY ==
[2023-03-08 09:21] VITALS: BP 128/79; PULSE 65; RESP 18; TEMP 36.5; O2SAT 99; BMI 31.4
[2023-03-08 09:30] VITALS: BP 130/84; PULSE 60; RESP 18; O2SAT 99
[2023-03-08 09:31] VITALS: BP 159/95; PULSE 63; RESP 18; O2SAT 97
[2023-03-08 09:32] VITALS: BP 159/95; PULSE 63; RESP 18; O2SAT 97
--- NOTE | 2023-03-08 09:43 | EXP.PAIN.PRO ---
Procedure Date: 03/08/23 Time: 09:45 Anesthesiologist:: Jasson Dunbar CRNA Complications:: None Pre-procedure Diagnosis:: Left sacroiliitis Post-procedure Diagnosis:: Same Indications for Procedure:: Patient very pleasant 62-year-old male comes our clinic today for repeat left sacroiliac joint injection. He has extreme point tenderness over the left sacroiliac joint. He rates his pain 8/10. Patient has difficulty transitioning from sitting to standing. Patient reports pain increases significantly when ambulating. Procedure Details:: Procedure: Left sacroiliac injection under fluoroscopy Informed consent was obtained and the risk and benefits of the procedure were explained to the patient.~ The patient was taken to the procedure room and noninvasive monitors were placed including noninvasive blood pressure cuff and pulse oximeter.~ The patient was placed prone on the procedure table.~ The~ left hip was cleansed using Betadine as a cleansing solution.~ C-arm fluorosocpy was used to view the left SI joint.~ The skin and subcutaneous tissues were anesthetized using Lidocaine 1.5% and a 25-gauge needle.~ After this, a 22-gauge spinal needle was inserted under fluoroscopic guidance into the inferior aspect of the left SI joint.~ Omnipaque dye was injected and a good spread was seen throughout the joint.~ After this, approximately 5 mL of bupivacaine 0.25% and Depo-Medrol 40 mg was incrementally injected into the sacroiliac joint.~ The patient tolerated the procedure well with no complications.~ The patient was observed in the Pain Clinic for a period of 30-45 minutes, then discharged home neurologically intact.~ Plan and Disposition:: Patient was discharged without incident.
== END 2023-03-08 09:30 | disposition home or self-care (01) ==
PROVIDERS: PCP Internal Medicine Adolescent Medicine; Visit Provider Nurse Anesthetist, Certified Registered
DX: M46.1 Sacroiliitis, not elsewhere classified (principal)
CPT/HCPCS: 27096; G0260; J1040

== ENCOUNTER → 2023-05-28 08:02 | Outpatient (CLI) | payer BC, SELFPAY ==
[2023-05-28 08:50] LABS: Basophils # 0.1 K/mm3 (0-0.2); Basophils % 1.1 % (0.1-2.0); Eosinophils # 0.4 K/mm3 (0.0-0.4); Eosinophils % 6.4 % (0.1-12.0); Hematocrit 50.1 % (42.0-52.0); Hemoglobin 16.3 g/dL (14.1-18.0); Lymphocytes # 1.4 K/mm3 (0.7-4.5); Lymphocytes % 22.6 % (10-50); Mean Corpuscular HGB Conc 32.6 g/dL (31.8-35.4); Mean Corpuscular Hemoglobin 29.3 pg (27.0-31.2); Mean Corpuscular Volume 89.8 fl (80-94); Mean Platelet Volume 7.9 fl (7.4-10.4); Monocytes # 0.6 K/mm3 (0.1-1.0); Monocytes % 8.9 % (1.7-9.3); Neutrophils # 3.9 K/mm3 (1.8-7.8); Neutrophils % 61.1 % (37.0-80.0); Platelet Count 359 K/mm3 (142-424); Red Blood Count 5.58 M/mm3 (4.60-6.20); Red Cell Distribution Width 13.9 % (11.5-17.5); White Blood Count 6.3 K/mm3 (4.8-10.8)
[2023-05-28 09:49] LABS: Alanine Aminotransferase 33 U/L (12-78); Albumin Level 4.3 g/dl (3.5-5.0); Albumin/Globulin Ratio 1.4 (1.1-1.8); Alkaline Phosphatase 74 U/L (38-126); Anion Gap 12.5 mEq/L (5-15); Aspartate Amino Transferase 28 U/L (17-59); Bilirubin,Total 0.9 mg/dl (0.2-1.3); Blood Urea Nitrogen 19 mg/dl (9-20); Calcium 9.7 mg/dl (8.4-10.2); Carbon Dioxide 28 mmol/L (22.0-30.0); Chloride 104 mmol/L (98-107); Chol/HDL Ratio 6.7 (1-3.5); Cholesterol 221 mg/dl (140-200); Estimated Glomerular Filt Rate 99 ml/min (>60); GFR (African American) 119 ML/MIN (>60); Glucose 95 mg/dl (74-100); HDL Cholesterol 33 mg/dl (40-60); Potassium 4.5 mmoL/L (3.5-5.1); Sodium 140 mmol/L (136-145); Total Protein,Serum 7.3 g/dl (6.3-8.2); Triglycerides 185 mg/dl (30-150); VLDL Cholesterol 37 mg/dL (0-40)
[2023-05-28 10:00] LABS: Direct LDL Cholesterol 131.09 mg/dL (100-129)
[2023-05-28 10:18] LABS: Prostate Specific Ag Screen < 0.1 ng/ml (0.0-4.0)
[2023-05-28 10:31] LABS: Creatinine,Urine Random 98 mg/dL (Not Estab.)
[2023-05-28 10:32] LABS: Hemoglobin A1C 5.4 % (4.0-6.0)
[2023-05-28 10:37] LABS: Microalbumin/Creatinine Ratio 11.7
== END ==
PROVIDERS: PCP Internal Medicine Adolescent Medicine; Visit Provider Nurse Practitioner Family
DX: Z00.00 Encounter for general adult medical examination without abnormal findings (principal); E11.9 Type 2 diabetes mellitus without complications; Z85.46 Personal history of malignant neoplasm of prostate; Z87.891 Personal history of nicotine dependence
CPT/HCPCS: 36415; 80053; 80061; 82043; 82570; 83036; 85025; G0103

== ENCOUNTER → 2023-06-17 12:30 | Outpatient (CLI) | payer BC, SELFPAY ==
--- NOTE | 2023-06-17 12:36 | CT_ITS ---
FINAL REPORT CLINICAL HISTORY: H/O TOBACCO USE former smoker, quit 6 years ago. smoked 1.5 ppd x 20 years COMPARISON: None FINDINGS: CT CHEST LOW DOSE SCREENING HISTORY: Screening exam for lung cancer. Former smoker, 30 pack year smoking history DOSE: CTDIvol: 2.9 mGy, DLP: 110.72 mGy*cm COMPARISON: None . TECHNIQUE: Axial CT without IV contrast administration using low dose protocol FINDINGS: Mild changes of emphysema are present. There is mild scarring in the lung rivers bilaterally. There are several less than 3 mm in size bilateral pulmonary nodules. There is a 2 mm nodule in the anterior aspect of the left lower lobe, seen on image #43. There is another 2 mm nodule in the lateral aspect of the right upper lobe, seen on image #30. No pleural or pericardial effusion is seen . No adenopathy or mass lesion is present . IMPRESSION: Mild changes of emphysema as described. Two small 2 mm nodules identified as described. LUNG RADS CATEGORY 2 RECOMMENDATION: 12 month LDCT follow up Reviewed, Interpreted and Dictated by Chapis Campbell MD Transcribed by Kirsten Boyce Authenticated and [facility]
== END ==
PROVIDERS: PCP Internal Medicine Adolescent Medicine; Visit Provider Nurse Practitioner Family
DX: Z87.891 Personal history of nicotine dependence (principal); Z12.2 Encounter for screening for malignant neoplasm of respiratory organs
CPT/HCPCS: 71271

== ENCOUNTER 2023-11-07 11:16 | Outpatient (POV) | payer BC, SELFPAY ==
--- NOTE | 2023-11-07 11:23 | EXP.PAIN.SOA ---
[facility] Pain Management SOAP Note Subjective:: Patient is a pleasant 8-year-old male who presents today for follow-up. We are currently treating the patient for left-sided sacroiliitis and low back pain. Today he rates his pain a 4 out of 10. Patient denies any new trauma or injury. He states that he is starting to notice more pain in and around his low back and left hip. Patient does have a history of chronic left-sided sacroiliitis and has hired multiple injections in the past that did provide significant relief. Patient has had 3 from our office with the first 1 providing 100% relief for 2 weeks and lasting 2 months. His second injection gave 4 weeks of 100% relief and then still provided additional relief up to 2-1/2 months and then his third injection gave months of relief. His last injection was done back in February 2023. He is interested in repeating this. He states when he has had these injections he is more functional and able to decrease his medications and move around easier. He does state today that the pain is worse with increased activity or ambulation or certain positioning. He states the pain is interfering with his ability perform activities of daily living such as cooking and cleaning. Patient does state that the meloxicam prescription that we started him on is now being prescribed by his primary care provider and does not need any refills. He also states he is doing well currently with his compounded cream. His Kody has been reviewed and is appropriate Review of Systems: General: No recent weight changes, no fever, no sleep disturbances Respiratory: No cough, no shortness of air, no recurring pulmonary infections Cardiovascular/peripheral vascular: No chest pain, no palpitations, no edema, no shortness of breath Gastrointestinal: No new onset incontinence, normal bowel movements reported Genitourinary: No new onset incontinence Musculoskeletal: Low back pain left-sided, left hip pain Psychiatric: [Normal mood/affect] Neurological: [Denies weakness in extremities], [denies balance issues] Objective:: Physical Exam: General: Alert and oriented x3, no acute distress, pleasant and cooperative Lungs: Respirations even and unlabored, symmetrical chest expansion Eyes: PERRL Musculoskeletal: Flexion and extension of lumbar [spine] somewhat guarded secondary to pain, [antalgic gait noted] point tenderness along left SI with positive left Deepika's, Jake's, Gaenslen's, compression and distraction exam Neurological: Speech clear, no gross sensory deficit Assessment:: Chronic left-sided sacroiliitis Plan:: Patient is experiencing worsening pain in his low back along the left hip. Patient did have point tenderness along his left thigh with a positive left Deepika's, Jake's, Gaenslen's, compression and distraction exam. I have discussed with the patient that he may benefit from a repeat SI injection. Patient has had these in the past that provided more than 90 to 100% relief with his last injection and lasting several months. We will schedule the patient for a left SI injection under fluoroscopy. Patient has been instructed to contact the clinic with any concerns before the next appointment. Dr. George has reviewed this note and agrees with this plan of care. This note was dictated using voice recognition software and make contain errors or omissions. [facility] Disclaimer: The information contained in this section may have been updated after the patient was seen, as this information can be updated by other users. Social History Smoking Status: Former smoker alcohol intake: never substance use type: denies use current occupational status: employed Travel in the last 8 weeks: None household members: spouse housing: house current occupation: [employer] current occupational exposures/hazards: Yes caffeine: Yes
[2023-11-07 11:35] VITALS: BP 138/88; PULSE 79; RESP 18; O2SAT 97; BMI 31.0
== END 2023-11-07 23:59 ==
LOC: SC.PAIN 11:16
PROVIDERS: PCP Internal Medicine Adolescent Medicine; Visit Provider Nurse Practitioner Family
DX: M46.1 Sacroiliitis, not elsewhere classified (principal); G89.29 Other chronic pain; M54.50 Low back pain, unspecified
CPT/HCPCS: 99212; G0463

== ENCOUNTER 2023-12-02 10:31 | Day surgery (SDC) | payer BC, SELFPAY ==
[2023-12-02 10:47] VITALS: BP 133/80; PULSE 82; RESP 18; TEMP 36.5; O2SAT 99; BMI 32.5
[2023-12-02] MEDS: methylPREDNISolone ACETATE 80MG/ML VIAL 80 MG (11:10)
[2023-12-02] MEDS: BUPIVACAINE 0.25% 10ML INJ 25 MG IJ (11:10)
[2023-12-02] MEDS: LIDOCAINE 1% 5ML PF VIAL 5 ML (11:10)
[2023-12-02 11:11] VITALS: BP 146/93; PULSE 70; RESP 18; O2SAT 94
[2023-12-02 11:13] VITALS: BP 146/93; PULSE 70; RESP 18; O2SAT 95
[2023-12-02 11:20] VITALS: BP 142/79; PULSE 73; RESP 18; O2SAT 99
--- NOTE | 2023-12-02 11:27 | P.PCN_ITS ---
Procedure Date: 12/02/23 Time: 11:15 Anesthesiologist:: Jasson Dunbar CRNA Complications:: None Pre-procedure Diagnosis:: Left sacroiliitis Post-procedure Diagnosis:: Same Indications for Procedure:: Patient is a very pleasant 62-year-old male that comes our clinic today for repeat left sacroiliac joint injection. He is responded very well to this injection in the past. He describes low left lumbar back pain. Left posterior hip pain. He reports having difficulty transitioning from sitting to standing. Ambulation increases pain significantly in the posterior hip on the left. He rates his pain 7/10. Procedure Details:: Procedure: Left sacroiliac injection under fluoroscopy Informed consent was obtained and the risk and benefits of the procedure were explained to the patient.~ The patient was taken to the procedure room and no ninvasive monitors were placed including noninvasive blood pressure cuff and pulse oximeter.~ The patient was placed prone on the procedure table.~ The~ left hip was cleansed using Betadine as a cleansing solution.~ C-arm fluorosocpy was used to view the left SI joint.~ The skin and subcutaneous tissues were anesthetized using Lidocaine 1.5% and a 25-gauge needle.~ After this, a 22-gauge spinal needle was inserted under fluoroscopic guidance into the inferior aspect of the left SI joint.~ Omnipaque dye was injected and a good spread was seen throughout the joint.~ After this, approximately 5 mL of bupivacaine 0.25% and Depo-Medrol 40 mg was incrementally injected into the sacroiliac joint.~ The patient tolerated the procedure well with no complications.~ The patient was observed in the Pain Clinic for a period of 30-45 minutes, then discharged home neurologically intact.~ Plan and Disposition:: Patient was discharged without incident.
== END 2023-12-02 11:20 | disposition home or self-care (01) ==
LOC: SC.PAINP 10:32
PROVIDERS: PCP Internal Medicine Adolescent Medicine; Visit Provider Nurse Anesthetist, Certified Registered
DX: M46.1 Sacroiliitis, not elsewhere classified (principal)
CPT/HCPCS: 27096; G0260; J1010

== ENCOUNTER 2023-12-15 14:22 | Outpatient (POV) | payer BC, SELFPAY ==
[2023-12-15 14:33] VITALS: BP 140/92; PULSE 73; RESP 16; O2SAT 96; BMI 32.5
--- NOTE | 2023-12-15 15:14 | A.OFFVIS_ITS ---
[facility] Pain Management SOAP Note Subjective:: Patient is a pleasant 62-year-old male who presents today for follow-up of left SI injection on 12/02/2023. Today he rates his pain a 6 out of 10. Patient states that he is experiencing some pain in his right hip but this is related to having to sit in her chair for a meeting for about an hour and a half. Patient states that it does get much better after he has gotten some relief and been able to ambulate. Patient does state that he has had significant improvement following his left SI injection with at least 80 to 100% improvement and feels like it still helping. Patient states he has been able to increase his activity with decreased pain symptoms and feels overall more functional. Patient is still taking the meloxicam that we initially started him on however his primary care provider to take over this prescription. His Kody has been reviewed and is appropriate. Review of Systems: General: No recent weight changes, no fever, no sleep disturbances Respiratory: No cough, no shortness of air, no recurring pulmonary infections Cardiovascular/peripheral vascular: No chest pain, no palpitations, no edema, no shortness of breath Gastrointestinal: No new onset incontinence, normal bowel movements reported Genitourinary: No new onset incontinence Musculoskeletal: Right hip pain Psychiatric: [Normal mood/affect] Neurological: [Denies weakness in extremities], [denies balance issues] Objective:: Physical Exam: General: Alert and oriented x3, no acute distress, pleasant and cooperative Lungs: Respirations even and unlabored, symmetrical chest expansion Eyes: PERRL Musculoskeletal: Flexion and extension of right hip somewhat guarded secondary to pain, [antalgic gait noted] Neurological: Speech clear, no gross sensory deficit Assessment:: Chronic left-sided sacroiliitis, hip pain Plan:: Patient has had significant improvement following his SI injection and does not require any additional injection therapy at this time. He will return to clinic in 3 months for reevaluation of symptoms and plan of care. Patient has been instructed to contact the clinic with any concerns before the next appointment. Dr. George has reviewed this note and agrees with this plan of care. This note was dictated using voice recognition software and make contain errors or omissions. [facility] Disclaimer: The information contained in this section may have been updated after the patient was seen, as this information can be updated by other users. Social History Smoking Status: Former smoker alcohol intake: never substance use type: denies use current occupational status: employed Travel in the last 8 weeks: None household members: spouse housing: house current occupation: [employer] current occupational exposures/hazards: Yes caffeine: Yes
== END 2023-12-15 23:59 ==
LOC: SC.PAIN 14:22
PROVIDERS: PCP Internal Medicine Adolescent Medicine; Visit Provider Nurse Practitioner Family
DX: M46.1 Sacroiliitis, not elsewhere classified (principal); G89.29 Other chronic pain; M25.559 Pain in unspecified hip
CPT/HCPCS: 99212; G0463

== ENCOUNTER 2024-01-26 08:04 | Outpatient (CLI) | payer BC, SELFPAY ==
[2024-01-26 08:25] LABS: Basophils # 0.1 K/mm3 (0-0.2); Basophils % 0.4 % (0.1-2.0); Eosinophils % 0.1 % (0.1-12.0); Hematocrit 47.6 % (42.0-52.0); Hemoglobin 15.8 g/dL (14.1-18.0); Lymphocytes # 1.7 K/mm3 (0.7-4.5); Lymphocytes % 11.4 % (10-50); Mean Corpuscular HGB Conc 33.2 g/dL (31.8-35.4); Mean Corpuscular Hemoglobin 30.2 pg (27.0-31.2); Mean Corpuscular Volume 90.8 fl (80-94); Mean Platelet Volume 7.9 fl (7.4-10.4); Monocytes # 0.6 K/mm3 (0.1-1.0); Monocytes % 4.3 % (1.7-9.3); Neutrophils # 12.4 K/mm3 (1.8-7.8); Neutrophils % 83.7 % (37.0-80.0); Platelet Count 375 K/mm3 (142-424); Red Blood Count 5.25 M/mm3 (4.60-6.20); Red Cell Distribution Width 14.6 % (11.5-17.5); White Blood Count 14.8 K/mm3 (4.8-10.8)
[2024-01-26 09:27] LABS: Alanine Aminotransferase 40 U/L (12-78); Albumin Level 4.3 g/dl (3.5-5.0); Albumin/Globulin Ratio 1.5 (1.1-1.8); Alkaline Phosphatase 68 U/L (38-126); Anion Gap 13.3 mEq/L (5-15); Aspartate Amino Transferase 30 U/L (17-59); Bilirubin,Total 0.7 mg/dl (0.2-1.3); Blood Urea Nitrogen 23 mg/dl (9-20); Calcium 9.9 mg/dl (8.4-10.2); Carbon Dioxide 26 mmol/L (22.0-30.0); Chloride 104 mmol/L (98-107); Chol/HDL Ratio 4.8 (1-3.5); Cholesterol 247 mg/dl (140-200); Estimated Glomerular Filt Rate 115 ml/min (>60); GFR (African American) 139 ML/MIN (>60); Globulin 2.9 g/dL (1.3-3.2); Glucose 101 mg/dl (74-100); HDL Cholesterol 51 mg/dl (40-60); Potassium 4.3 mmoL/L (3.5-5.1); Sodium 139 mmol/L (136-145); Total Protein,Serum 7.2 g/dl (6.3-8.2); Triglycerides 140 mg/dl (30-150); Uric Acid 4.4 mg/dl (3.5-8.5); VLDL Cholesterol 28 mg/dL (0-40)
[2024-01-26 09:31] LABS: Erythrocyte Sedimentation Rate 6 mm/hr (0-20)
[2024-01-26 09:38] LABS: C-Reactive Protein 2.1 mg/L (0-4); Direct LDL Cholesterol 156.19 mg/dL (100-129)
[2024-01-26 10:02] LABS: Hemoglobin A1C 5.4 % (4.0-6.0)
[2024-01-26 15:30] LABS: Thyroid Stimulating Hormone 1.16 uIU/mL (0.465-4.68)
[2024-01-27 15:05] LABS: RA Latex Turbid. 14.3 IU/mL (<14.0)
== END 2024-01-26 23:59 | disposition home or self-care (01) ==
LOC: LAB 08:06
PROVIDERS: PCP Internal Medicine Adolescent Medicine; Visit Provider Nurse Practitioner Family
DX: I10 Essential (primary) hypertension (principal); E11.9 Type 2 diabetes mellitus without complications; M25.50 Pain in unspecified joint; R63.5 Abnormal weight gain; Z79.899 Other long term (current) drug therapy
CPT/HCPCS: 36415; 80053; 80061; 83036; 84443; 84550; 85025; 85651; 86140; 86431

== ENCOUNTER 2024-02-03 07:32 | Outpatient (CLI) | payer BC, SELFPAY ==
--- NOTE | 2024-02-03 07:40 | FL_ITS ---
FINAL REPORT CLINICAL HISTORY: GERD ft 1:13 dap 1223.49 FINDINGS: UPPER GI EXAM HISTORY: Abdominal pain, nausea. PROCEDURE: The patient ingested barium. Effervescent crystals were also administered. Spot and overhead films were obtained. FINDINGS: The esophagus is normal. There is a small sliding type hiatal hernia. There is mild gastroesophageal reflux. Peristalsis is normal. The rugal fold pattern of the stomach is normal. The duodenal bulb is normal. Fluoroscopy time: 1 minute 13 seconds Fluoro dose: 1223.49 DAP in uGym2 IMPRESSION: Small sliding-type hiatal hernia with mild gastroesophageal reflux. Films reviewed , interpreted and dictated by Dr. De La Rosa Transcribed by Giovani Huang PA-C. Reviewed, Interpreted and Dictated by Troy De La Rosa III, MD Transcribed by GUANAKO Crowder Authenticated and . [facility]
[2024-02-03] MEDS: BARIUM SULFATE(LIQUID E-Z-PAQUE);355ML BOTTLE 355 ML PO (08:17)
[2024-02-03] MEDS: BARIUM SULFATE (E-Z-HD 340GM);135ML BOTTLE 135 ML PO (08:18)
[2024-02-03] MEDS: E-Z-GASII EFFERVESCENT GRANULES;1PK 1 EACH PO (08:18)
== END 2024-02-03 23:59 | disposition home or self-care (01) ==
LOC: RAD 07:33
PROVIDERS: PCP Nurse Practitioner Family; Visit Provider Nurse Practitioner Family
DX: K44.9 Diaphragmatic hernia without obstruction or gangrene (principal); K21.9 Gastro-esophageal reflux disease without esophagitis
CPT/HCPCS: 74246

== ENCOUNTER 2024-03-15 14:23 | Outpatient (POV) | payer BC, SELFPAY ==
[2024-03-15 14:32] VITALS: BP 108/75; PULSE 73; RESP 16; O2SAT 97; BMI 32.8
--- NOTE | 2024-03-15 14:44 | A.OFFVIS_ITS ---
[facility] Disclaimer: The information contained in this section may have been updated after the patient was seen, as this information can be updated by other users. Social History Smoking Status: Former smoker alcohol intake: never substance use type: denies use current occupational status: employed Travel in the last 8 weeks: None household members: spouse housing: house current occupation: [employer] current occupational exposures/hazards: Yes caffeine: Yes PM Subjective & Objective Subjective Subjective:: Patient is a pleasant 63-year-old male who presents today for follow-up. Today he rates his pain a 4 out of 10 however states the pain will go up to a 6 out of 10 as the day goes on. He does state that he is experiencing worsening pain in his low back along the left side and into his left hip. Patient denies any new trauma or injury. He does state this is that same pain that he has been having and feels like the injection has officially worn off. He does describe the pain as an aching, throbbing sensation that is interfering with his ability perform activities of daily living such as cooking and cleaning. Patient did previously have a left SI injection back in November that did provide upwards of 80 to 100% improvement and lasted up until the last week or so. Patient denies state he continues to do at home exercising and stretching between this injection for longer than 6 weeks with no additional change. Patient does even state that he has a program that they do at work that involves a morning stretch daily to help minimize work injuries. His Kody has been reviewed and is appropriate. Review of Systems: General: No recent weight changes, no fever, no sleep disturbances Respiratory: No cough, no shortness of air, no recurring pulmonary infections Cardiovascular/peripheral vascular: No chest pain, no palpitations, no edema, no shortness of breath Gastrointestinal: No new onset incontinence, normal bowel movements reported Genitourinary: No new onset incontinence Musculoskeletal: Low back pain, left hip pain Psychiatric: [Normal mood/affect] Neurological: [Denies weakness in extremities], [denies balance issues] Pain at rest (0-10 scale): 6 Objective Objective:: Physical Exam: General: Alert and oriented x3, no acute distress, pleasant and cooperative Lungs: Respirations even and unlabored, symmetrical chest expansion Eyes: PERRL Musculoskeletal: Flexion and extension of lumbar [spine] somewhat guarded s econdary to pain, [antalgic gait noted] point tenderness along left SI with positive left Deepika's, Jake's, Gaenslen's, compression and distraction exam Neurological: Speech clear, no gross sensory deficit Has patient had previous pain injection?: No Conservative treatment options previously tried: Home exercise plan Length of treatment: Longer than 6 weeks Meds Home Medications and Allergies Home Medications Medication Instructions Recorded Confirmed Type aspirin 81 mg tablet,delayed 81 mg PO ONCE Blood thinner 10/11/17 03/15/24 History release (Adult Low Dose Aspirin) omeprazole 20 mg capsule,delayed 20 mg PO ONCE ACID REFLUX 10/11/17 03/15/24 History release tamsulosin 0.4 mg capsule (Flomax) 0.4 mg PO ONCE PROSTATE 10/11/17 03/15/24 History amlodipine 10 mg tablet 10 mg PO DAILY blood pressure 11/23/21 03/15/24 History cyclobenzaprine 10 mg tablet 10 mg PO Q8HP PRN Muscle Spasm 11/23/21 03/15/24 History diclofenac sodium 75 mg 75 mg PO BID Pain 12/14/22 03/15/24 History tablet,delayed release meloxicam 7.5 mg tablet 15 mg (2 x 7.5 mg) PO DAILY Pain 02/03/23 03/15/24 Rx #30 tabs New Prescriptions to Start Prescriptions: Allergies Allergy/AdvReac Type Severity Reaction Status Date / Time No Known Allergies Allergy Verified 12/02/23 10:48 Assessment and Plan *Assessment and plan (1) Sacroiliitis: Status: Acute Category: Medical Code(s): M46.1 - Sacroiliitis, not elsewhere classified Plan Patient is experiencing worsening pain along his low back and left hip. Patient did have limited range of motion of his lumbar spine along with point tenderness at his left SI and a positive left Deepika's, Jake's, Gaenslen's, compression and distraction exam. Patient did have a previous SI injection back on December 01 that did provide 80 to 100% relief lasting up until the last week. I have discussed with patient that he may benefit from repeat left SI injection. Risk and benefits were discussed with patient and he would like to proceed forward with this plan of care. Patient has tried and failed conservative therapy including continued at home stretching exercise for longer than 6 weeks. Patient will be scheduled for a left SI injection under fluoroscopy. Patient has been instructed to contact the clinic with any concerns before the next appointment. Dr. George has reviewed this note and agrees with this plan of care. This note was dictated using voice recognition software and make contain errors or omissions.
== END 2024-03-15 23:59 | disposition home or self-care (01) ==
LOC: SC.PAIN 14:24
PROVIDERS: PCP Internal Medicine Adolescent Medicine; Visit Provider Nurse Practitioner Family
DX: M46.1 Sacroiliitis, not elsewhere classified (principal)
CPT/HCPCS: 99212; G0463

== ENCOUNTER 2024-04-24 13:40 | Day surgery (SDC) | payer BC, SELFPAY ==
[2024-04-24 14:10] VITALS: BP 118/67; PULSE 74; RESP 16; TEMP 36.8; O2SAT 99; BMI 31.0
[2024-04-24 14:28] VITALS: BP 104/72; PULSE 66; RESP 16; O2SAT 99
[2024-04-24] MEDS: methylPREDNISolone ACETATE 80MG/ML VIAL 80 MG (14:31)
[2024-04-24] MEDS: BUPIVACAINE 0.25% 10ML INJ 25 MG IJ (14:31)
[2024-04-24] MEDS: LIDOCAINE 1% 5ML PF VIAL 5 ML (14:31)
--- NOTE | 2024-04-24 14:47 | P.PCN_ITS ---
Procedure Date: 04/24/24 Time: 14:32 Anesthesiologist:: Jasson Dunbar CRNA Complications:: None Pre-procedure Diagnosis:: Left sacroiliitis Post-procedure Diagnosis:: Same Indications for Procedure:: Patient is a very pleasant 63-year-old male that comes our clinic today for left sacroiliac joint injection of cortisone and local anesthesia. Patient has extreme point tenderness over the left sacroiliac joint upon examination. Patient describes left posterior hip pain as constant, dull, aching. He rates his pain 7/10. Patient reports having difficulty transitioning from sitting to standing. Difficulty with ambulation. Procedure Details:: Procedure: Left sacroiliac injection under fluoroscopy Informed consent was obtained and the risk and benefits of the procedure were explained to the patient.~ The patient was taken to the procedure room and noninvasive monitors were placed including noninvasive blood pressure cuff and pulse oximeter.~ The patient was placed prone on the procedure table.~ The~ left hip was cleansed using Betadine as a cleansing solution.~ C-arm fluorosocpy was used to view the left SI joint.~ The skin and subcutaneous tissues were anesthetized using Lidocaine 1.5% and a 25-gauge needle.~ After this, a 22-gauge spinal needle was inserted under fluoroscopic guidance into the inferior aspect of the left SI joint.~ Omnipaque dye was injected and a good spread was seen throughout the joint.~ After this, approximately 5 mL of bupivacaine 0.25% and Depo-Medrol 40 mg was incrementally injected into the sacroiliac joint.~ The patient tolerated the procedure well with no complications.~ The patient was o bserved in the Pain Clinic for a period of 30-45 minutes, then discharged home neurologically intact.~ Plan and Disposition:: Patient was discharged without incident.
== END 2024-04-24 14:28 | disposition home or self-care (01) ==
LOC: SC.PAINP 13:41
PROVIDERS: PCP Internal Medicine Adolescent Medicine; Visit Provider Nurse Anesthetist, Certified Registered
DX: M46.1 Sacroiliitis, not elsewhere classified (principal)
CPT/HCPCS: 27096; G0260; J1010

== ENCOUNTER 2024-05-23 09:22 | Outpatient (POV) | payer BC, SELFPAY ==
[2024-05-23 09:28] VITALS: BP 116/80; PULSE 69; RESP 16; O2SAT 99; BMI 29.5
--- NOTE | 2024-05-23 09:59 | EXP.PAIN.SOA ---
[facility] Disclaimer: The information contained in this section may have been updated after the patient was seen, as this information can be updated by other users. Social History Smoking Status: Former smoker alcohol intake: never substance use type: denies use current occupational status: other Travel in the last 8 weeks: None household members: spouse housing: house current occupation: [employer] current occupational exposures/hazards: Yes caffeine: Yes PM Subjective & Objective Subjective Subjective:: Patient is a pleasant 63-year-old male who presents today for follow-up of left SI injection on 04/24/2024. Today he rates his pain today 1 out of 10. Patient states that he has had 100% relief from his pains that he was experiencing and feels like it still helping. Patient states he is able to do more with overall decreased pain and improved function. Patient does also state that he has given up bread and potatoes and he is lost 25 pounds. He states he does feel much better overall. His Kody has been reviewed and is appropriate. Review of Systems: General: No recent weight changes, no fever, no sleep disturbances Respiratory: No cough, no shortness of air, no recurring pulmonary infections Cardiovascular/peripheral vascular: No chest pain, no palpitations, no edema, no shortness of breath Gastrointestinal: No new onset incontinence, normal bowel movements reported Genitourinary: No new onset incontinence Musculoskeletal: Low back pain Psychiatric: [Normal mood/affect] Neurological: [Denies weakness in extremities], [denies balance issues] Pain at rest (0-10 scale): 1 Objective Objective:: Physical Exam: General: Alert and oriented x3, no acute distress, pleasant and cooperative Lungs: Respirations even and unlabored, symmetrical chest expansion Eyes: PERRL Musculoskeletal: Flexion and extension of lumbar [spine] somewhat guarded secondary to pain Neurological: Speech clear, no gross sensory deficit Has patient had previous pain injection?: Yes Percent improvement in pain since last injection: 100% Conservative treatment options previously tried: Home exercise plan Length of treatment: Longer than 12 weeks Meds Home Medications and Allergies Home Medications ?Medication ?Instructions ?Recorded ?Confirmed ?Type aspirin 81 mg tablet,delayed 81 mg PO ONCE Blood thinner 10/11/17 04/24/24 History release (Adult Low Dose Aspirin) omeprazole 20 mg capsule,delayed 20 mg PO ONCE ACID REFLUX 10/11/17 04/24/24 History release tamsulosin 0.4 mg capsule (Flomax) 0.4 mg PO ONCE PROSTATE 10/11/17 04/24/24 History amlodipine 10 mg tablet 10 mg PO DAILY blood pressure 11/23/21 04/24/24 History cyclobenzaprine 10 mg tablet 10 mg PO Q8HP PRN Muscle Spasm 11/23/21 04/24/24 History diclofenac sodium 75 mg 75 mg PO BID Pain 12/14/22 04/24/24 History tablet,delayed release meloxicam 7.5 mg tablet 15 mg (2 x 7.5 mg) PO DAILY Pain 02/03/23 04/24/24 Rx #30 tabs New Prescriptions to Start Prescriptions: Allergies Allergy/AdvReac Type Severity Reaction Status Date / Time No Known Allergies Allergy Verified 04/24/24 14:10 Assessment and Plan *Assessment and plan (1) Sacroiliitis: Status: Acute Category: Medical Code(s): M46.1 - Sacroiliitis, not elsewhere classified Plan Patient has had 100% relief following his left SI injection and does not require any additional injection therapy. Patient will return to clinic in 2 months for reevaluation of symptoms and plan of care. Patient has been instructed to contact the clinic with any concerns before the next appointment. Dr. George has reviewed this note and agrees with this plan of care. This note was dictated using voice recognition software and make contain errors or omissions. All injections are used with Lidocaine or Bupivacaine and Depo Medrol.
== END 2024-05-23 23:59 | disposition home or self-care (01) ==
LOC: SC.PAIN 09:23
PROVIDERS: PCP Internal Medicine Adolescent Medicine; Visit Provider Nurse Practitioner Family
DX: M46.1 Sacroiliitis, not elsewhere classified (principal); Z87.891 Personal history of nicotine dependence
CPT/HCPCS: 99212; G0463

== ENCOUNTER 2024-07-10 10:59 | Outpatient (CLI) | payer BC, SELFPAY ==
[2024-07-10 11:46] LABS: Basophils # 0.1 K/mm3 (0-0.2); Basophils % 1.3 % (0.1-2.0); Eosinophils # 0.1 K/mm3 (0.0-0.4); Eosinophils % 1.3 % (0.1-12.0); Hematocrit 45.3 % (42.0-52.0); Hemoglobin 15.8 g/dL (14.1-18.0); Lymphocytes # 2.6 K/mm3 (0.7-4.5); Lymphocytes % 30.8 % (10-50); Mean Corpuscular HGB Conc 34.9 g/dL (31.8-35.4); Mean Corpuscular Hemoglobin 30.6 pg (27.0-31.2); Mean Corpuscular Volume 87.5 fl (80-94); Mean Platelet Volume 7.4 fl (7.4-10.4); Monocytes # 0.7 K/mm3 (0.1-1.0); Monocytes % 7.6 % (1.7-9.3); Neutrophils # 5.1 K/mm3 (1.8-7.8); Platelet Count 370 K/mm3 (142-424); Red Blood Count 5.17 M/mm3 (4.60-6.20); Red Cell Distribution Width 14.4 % (11.5-17.5); White Blood Count 8.6 K/mm3 (4.8-10.8)
[2024-07-10 11:58] LABS: Blood Urea Nitrogen 22 mg/dl (9-20); Carbon Dioxide 28 mmol/L (22.0-30.0); Chloride 105 mmol/L (98-107); Estimated Glomerular Filt Rate 76 ml/min (>60); GFR (African American) 92 ML/MIN (>60); Glucose 91 mg/dl (74-100); Sodium 140 mmol/L (136-145)
== END 2024-07-10 23:59 | disposition home or self-care (01) ==
LOC: LAB 11:00
PROVIDERS: PCP Internal Medicine Adolescent Medicine; Visit Provider Surgery
DX: K64.9 Unspecified hemorrhoids (principal)
CPT/HCPCS: 36415; 80048; 85025

== ENCOUNTER 2024-07-12 12:10 | Day surgery (SDC) | payer BC, SELFPAY ==
[2024-07-11 13:34] VITALS: BMI 27.0
[2024-07-12] VITALS (8 sets, daily range): BP systolic 100–137; BP diastolic 70–96; PULSE 72–87; RESP 17–148; TEMP 36.1–36.6; O2SAT 97–100
[2024-07-12] MEDS: LACTATED RINGERS 1000ML 1,000 ML 100 ML IV (12:51)
[2024-07-12 13:00] LABS: POC Glucose,Bedside 86 (70-110)
[2024-07-12] MEDS: CLINDAMYCIN PHOSPHATE/D5W 900 MG/50 ML PIGGYBACK 100 MG IV (13:13)
[2024-07-12] MEDS: BUPIVACAINE 0.5% W/EPI 1:200,000 30ML VIAL 30 ML IJ (13:35)
[2024-07-12] MEDS: LIDOCAINE 1% W/EPI 1:100,000 20ML VIAL 20 ML (13:35)
--- NOTE | 2024-07-12 14:28 | P.OP_ITS ---
Date of procedure: 07/12/24 Pre-op Diagnosis:: Acute thrombosed hemorrhoids Post-op Diagnosis:: Same Procedure performed:: Extensive internal/external hemorrhoidectomy left lateral location Surgeon:: Troy Tapia MD COLOR TESTER:: Darell Espinal Anesthesia: local and LMA Estimated blood loss (mL): 20 Clinical Note:: Patient is a 63-year-old male from [facility] with history of coronary artery disease, hyperlipidemia, diabetes, tobacco use, who I had seen in the [facility] for a left inguinal hernia which she underwent open repair on 10/19/2021. He is now referred for hemorrhoids we had and seen in the office on 07/10/2024. He states that he has had some hemorrhoid problems intermittently for 20 to 30 years. He has undergone apparently a total of 4 hemorrhoid procedures in the past. He has not had any problems for a couple of decades until this past Tuesday on 07/06/2024 he had swelling and protrusion of hemorrhoids which have been quite painful. He states that he had decided to eat breakfast for supper including coffee. He went to sleep and then woke several hours later to drink some more coffee. He then developed bowel frequency with multiple bowel movements. With the frequency of bowel movements he had protrusion with swelling and severe tenderness and discomfort of hemorrhoid. He has had some minor bleeding. He was found to have very large amount of thrombosed hemorrhoid left lateral location. Options were discussed and patient wished to proceed with surgery. Given the extensive nature plan was made for hemorrhoidectomy. Operative findings:: Patient had appreciable internal and external hemorrhoids. Most pronounced was in the left lateral somewhat posterior location where there was evidence of thrombosed hemorrhoids with some excoriation. Somewhat anterior to this there was prominent hemorrhoid pile and in the right posterior lateral location as well. However the problematic most symptomatic area was the left lateral to posterior. Operative note:: Consent was obtained and patient was taken to the operating room. He was positioned in a supine position. General anesthesia was induced via LMA. He was then positioned in lithotomy position. The area was prepped and draped in the standard surgical fashion. He had evidence of prolapsing nearly circumferential hemorrhoids. Digital examination was performed. Anoscope was inserted. There was evidence of significant prolapsed thrombosed hemorrhoids in the left position most pronounced in the left lateral to posterior position. However, there were hemorrhoid piles somewhat left anterior and right posterior as well. The anoderm was scored with #15 blade. Anoderm and underlying hemorrhoid tissue was partially excised using hand-held LEAH ultrasonic harmonic vandana. Extensive hemorrhoidectomy was performed with additional evacuation of thrombosed hemorrhoid tissue excising it using Metzenbaum dissection. This required some additional excision of distal rectal mucosa with some anoderm. Hemostasis was achieved with electrocautery. Irrigation was performed. Local anesthesia was infiltrated. Distal rectal mucosa and external anoderm was closed with a running 2-0 chromic locking suture. Then oversewn with simple running 2-0 chromic. Additional local anesthetic was infiltrated. Gelfoam roll soaked in topical hemostatic was inserted into the anorectal vault. Absorbent dressing was applied. Given the extensive hemorrhoidectomy required at the left lateral to posterior location additional hemorrhoidectomy was not performed at this time. Condition: stable Disposition: PACU Complications:: None immediately apparent
[2024-07-12 14:51] LABS: POC Glucose,Bedside 107 (70-110)
--- NOTE | 2024-07-13 14:12 | EXP.ANES.II ---
[facility] Anesthesia Record Part II Anesthesia Record Part II Discharge Time: 15:01 Destination: Surgical Day Care (OP Surgery) PACU nurse assessment reviewed?: Yes Patient Condition:: Good Anesthesia Complications:: None Swallowing reflex intact?: Yes Airway Patency: Patent Cyanosis?: No Blood Pressure: 126/75 SaO2: 99 Respiratory Rate: 18 Pulse Rate: 73 Temperature: 97.8 F Mental Status: Alert & Oriented Pain level:: 0 Nausea and/or vomitting:: None Intake, IV Amount: 0 Hydration: Adequate
[2024-07-13 14:15] VITALS: BP 126/75; PULSE 73; RESP 18; TEMP 36.6; O2SAT 99
== END 2024-07-12 15:19 | disposition home or self-care (01) ==
PROVIDERS: PCP Internal Medicine Adolescent Medicine; Visit Provider Surgery
PROC: (CPT 46255; principal; 2024-07-12 14:00)
DX: K64.5 Perianal venous thrombosis (principal)
CPT/HCPCS: 46255; 82962; 96374; J0736; J1100; J2405; J3010; J7120

== ENCOUNTER 2024-07-18 13:24 | Outpatient (POV) | payer BC, SELFPAY ==
--- NOTE | 2024-07-18 13:42 | EXP.PAIN.SOA ---
[facility] Disclaimer: The information contained in this section may have been updated after the patient was seen, as this information can be updated by other users. Medical History Diabetes Prostate cancer History of COVID-19 History of gastroesophageal reflux (GERD) Surgical History H/O prostatectomy History of colonoscopy Family History Other No significant family history Social History Smoking Status: Former smoker alcohol intake: never substance use type: denies use current occupational status: other Travel in the last 8 weeks: None household members: spouse housing: house current occupation: [employer] current occupational exposures/hazards: Yes caffeine: Yes PM Subjective & Objective Subjective Subjective:: Patient is a pleasant 63-year-old male who presents today for 2-month. He rates his pain today a 3 out of 10. He denies any new falls or injuries from our last visit. He does state earlier today his pain was a 0 out of 10. He states the weather does play a significant role in his daily aches and pains. Patient did previously have a left SI injection on 04/24/2024 that did provide 100% relief. He states overall he feels like this is still working well and does not require any other injections at this time. His Kody has been reviewed and is appropriate. Review of Systems: General: No recent weight changes, no fever, no sleep disturbances Respiratory: No cough, no shortness of air, no recurring pulmonary infections Cardiovascular/peripheral vascular: No chest pain, no palpitations, no edema, no shortness of breath Gastrointestinal: No new onset incontinence, normal bowel movements reported Genitourinary: No new onset incontinence Musculoskeletal: Low back pain Psychiatric: [Normal mood/affect] Neurological: [Denies weakness in extremities], [denies balance issues] Pain at rest (0-10 scale): 3 Objective Objective:: Physical Exam: General: Alert and oriented x3, no acute distress, pleasant and cooperative Lungs: Respirations even and unlabored, symmetrical chest expansion Eyes: PERRL Musculoskeletal: Flexion and extension of lumbar [spine] somewhat guarded secondary to pain, [antalgic gait noted] Neurological: Speech clear, no gross sensory deficit Has patient had previous pain injection?: No Conservative treatment options previously tried: Home exercise plan Length of treatment: Longer than 12 weeks Meds Home Medications and Allergies Home Medications ?Medication ?Instructions ?Recorded ?Confirmed ?Type aspirin 81 mg tablet,delayed 81 mg PO ONCE Blood thinner 10/11/17 07/18/24 History release (Adult Low Dose Aspirin) omeprazole 20 mg capsule,delayed 20 mg PO ONCE ACID REFLUX 10/11/17 07/18/24 History release tamsulosin 0.4 mg capsule (Flomax) 0.4 mg PO ONCE PROSTATE 10/11/17 07/18/24 History amlodipine 10 mg tablet 10 mg PO DAILY blood pressure 11/23/21 07/18/24 History cyclobenzaprine 10 mg tablet 10 mg PO Q8HP PRN Muscle Spasm 11/23/21 07/18/24 History diclofenac sodium 75 mg 75 mg PO BID Pain 12/14/22 07/18/24 History tablet,delayed release hydrocortisone 2.5 % topical cream 2.5 applic topical DAILY 07/10/24 07/18/24 History with perineal applicator (Procto-Med HC) meloxicam 15 mg tablet 15 mg PO DAILY 07/10/24 07/18/24 History hydrocodone 5 mg-acetaminophen 325 1 - 2 tab PO Q6H PRN Pain #21 tabs 07/12/24 07/18/24 Rx mg tablet New Prescriptions to Start Prescriptions: Allergies Allergy/AdvReac Type Severity Reaction Status Date / Time No Known Allergies Allergy Verified 07/11/24 13:25 Assessment and Plan *Assessment and plan (1) Sacroiliitis: Status: Acute Category: Medical Code(s): M46.1 - Sacroiliitis, not elsewhere classified Plan Patient continues to do well from his last SI injection. We will follow-up with him in 4 months for reevaluation of symptoms and plan of care. Patient has been instructed to contact the clinic with any concerns before the next appointment. Dr. George has reviewed this note and agrees with this plan of care. This note was dictated using voice recognition software and make contain errors or omissions. All injections are used with Lidocaine or Bupivacaine and Depo Medrol.
[2024-07-18 13:49] VITALS: BP 114/70; PULSE 78; RESP 14; O2SAT 97; BMI 27.0
== END 2024-07-18 23:59 | disposition home or self-care (01) ==
LOC: SC.PAIN 13:24
PROVIDERS: PCP Internal Medicine Adolescent Medicine; Visit Provider Nurse Practitioner Family
DX: M46.1 Sacroiliitis, not elsewhere classified (principal)
CPT/HCPCS: 99212; G0463

== ENCOUNTER 2024-09-22 08:06 | Outpatient (CLI) | payer BC, SELFPAY ==
[2024-09-22 08:32] LABS: Basophils # 0.1 K/mm3 (0-0.2); Basophils % 0.9 % (0.1-2.0); Eosinophils # 0.4 K/mm3 (0.0-0.4); Eosinophils % 5.3 % (0.1-12.0); Hematocrit 43.1 % (42.0-52.0); Hemoglobin 14.3 g/dL (14.1-18.0); Lymphocytes # 1.5 K/mm3 (0.7-4.5); Lymphocytes % 19.2 % (10-50); Mean Corpuscular HGB Conc 33.2 g/dL (31.8-35.4); Mean Corpuscular Hemoglobin 29.2 pg (27.0-31.2); Mean Platelet Volume 8.8 fl (7.4-10.4); Monocytes # 0.9 K/mm3 (0.1-1.0); Monocytes % 11.4 % (1.7-9.3); Neutrophils # 4.8 K/mm3 (1.8-7.8); Neutrophils % 62.9 % (37.0-80.0); Platelet Count 291 K/mm3 (142-424); Red Cell Distribution Width 13.6 % (11.5-17.5); White Blood Count 7.7 K/mm3 (4.8-10.8)
[2024-09-22 08:54] LABS: Creatinine,Urine Random 104 mg/dL (Not Estab.)
[2024-09-22 09:04] LABS: Albumin Level 4.3 g/dl (3.5-5.0); Chloride 104 mmol/L (98-107); Potassium 4.6 mmoL/L (3.5-5.1); Sodium 139 mmol/L (136-145)
[2024-09-22 09:07] LABS: Alanine Aminotransferase 26 U/L (12-78); Albumin/Globulin Ratio 1.8 (1.1-1.8); Alkaline Phosphatase 88 U/L (38-126); Anion Gap 9.6 mEq/L (5-15); Aspartate Amino Transferase 28 U/L (17-59); Bilirubin,Total 0.6 mg/dl (0.2-1.3); Blood Urea Nitrogen 29 mg/dl (9-20); Calcium 9.4 mg/dl (8.4-10.2); Carbon Dioxide 30 mmol/L (22.0-30.0); Cholesterol 219 mg/dl (140-200); Estimated Glomerular Filt Rate 115 ml/min (>60); GFR (African American) 139 ML/MIN (>60); Globulin 2.4 g/dL (1.3-3.2); Glucose 98 mg/dl (74-100); Total Protein,Serum 6.7 g/dl (6.3-8.2); Triglycerides 249 mg/dl (30-150); VLDL Cholesterol 50 mg/dL (0-40)
[2024-09-22 09:08] LABS: Chol/HDL Ratio 6.4 (1-3.5); HDL Cholesterol 34 mg/dl (40-60)
[2024-09-22 09:19] LABS: Direct LDL Cholesterol 131.38 mg/dL (100-129)
[2024-09-22 09:22] LABS: Microalbumin/Creatinine Ratio 10.4
== END 2024-09-22 23:59 | disposition home or self-care (01) ==
LOC: LAB 08:07
PROVIDERS: Nurse Practitioner Family; PCP Internal Medicine Adolescent Medicine; Visit Provider Internal Medicine Adolescent Medicine
DX: I10 Essential (primary) hypertension (principal); E11.9 Type 2 diabetes mellitus without complications
CPT/HCPCS: 36415; 80053; 80061; 82043; 82570; 83036; 85025

== ENCOUNTER 2024-11-14 13:21 | Outpatient (POV) | payer BC, SELFPAY ==
[2024-11-14 13:32] VITALS: BP 123/82; PULSE 71; RESP 14; O2SAT 98; BMI 29.2
--- NOTE | 2024-11-14 13:54 | A.OFFVIS_ITS ---
[facility] Disclaimer: The information contained in this section may have been updated after the patient was seen, as this information can be updated by other users. Medical History Diabetes Prostate cancer History of COVID-19 History of gastroesophageal reflux (GERD) Surgical History H/O prostatectomy History of colonoscopy Family History Other No significant family history Social History Smoking Status: Former smoker alcohol intake: never substance use type: denies use current occupational status: other Travel in the last 8 weeks: None household members: spouse housing: house current occupation: [employer] current occupational exposures/hazards: Yes caffeine: Yes PM Subjective & Objective Subjective Subjective:: Patient is a pleasant 63-year-old male who presents today for 4-month follow-up. Patient rates his pain today a 0 out of 10. Patient did previously have his last SI injection in March along the left side that did have 100% relief and is still doing about the same. Patient states that he was really worried that with the winter we have had that he would have increased pain however as of right now he is doing wonderful he denies any other changes. His Kody has been reviewed and is appropriate. Review of Systems: General: No recent weight changes, no fever, no sleep disturbances Respiratory: No cough, no shortness of air, no recurring pulmonary infections Cardiovascular/peripheral vascular: No chest pain, no palpitations, no edema, no shortness of breath Gastrointestinal: No new onset incontinence, normal bowel movements reported Genitourinary: No new onset incontinence Musculoskeletal: Low back pain Psychiatric: [Normal mood/affect] Neurological: [Denies weakness in extremities], [denies balance issues] Pain at rest (0-10 scale): 0 Objective Objective:: Physical Exam: General: Alert and oriented x3, no acute distress, pleasant and cooperative Lungs: Respirations even and unlabored, symmetrical chest expansion Eyes: PERRL Musculoskeletal: Flexion and extension of lumbar spine within normal limits Neurological: Speech clear, no gross sensory deficit Has patient had previous pain injection?: No Conservative treatment options previously tried: Home exercise plan Length of treatment: Longer than 12 weeks Meds Home Medications and Allergies Home Medications ?Medication ?Instructions ?Recorded ?Confirmed ?Type aspirin 81 mg tablet,delayed 81 mg PO ONCE Blood thinner 10/11/17 11/14/24 History release (Adult Low Dose Aspirin) omeprazole 20 mg capsule,delayed 20 mg PO ONCE ACID REFLUX 10/11/17 11/14/24 History release tamsulosin 0.4 mg capsule (Flomax) 0.4 mg PO ONCE PROSTATE 10/11/17 11/14/24 History amlodipine 10 mg tablet 10 mg PO DAILY blood pressure 11/23/21 11/14/24 History cyclobenzaprine 10 mg tablet 10 mg PO Q8HP PRN Muscle Spasm 11/23/21 11/14/24 History diclofenac sodium 75 mg 75 mg PO BID Pain 12/14/22 11/14/24 History tablet,delayed release hydrocortisone 2.5 % topical cream 2.5 applic topical DAILY 07/10/24 11/14/24 History with perineal applicator (Procto-Med HC) meloxicam 15 mg tablet 15 mg PO DAILY 07/10/24 11/14/24 History hydrocodone 5 mg-acetaminophen 325 1 - 2 tab PO Q6H PRN Pain #21 tabs 07/12/24 11/14/24 Rx mg tablet New Prescriptions to Start Prescriptions: Allergies Allergy/AdvReac Type Severity Reaction Status Date / Time No Known Allergies Allergy Verified 07/19/24 11:39 Assessment and Plan *Assessment and plan (1) Sacroiliitis: Status: Acute Category: Medical Code(s): M46.1 - Sacroiliitis, not elsewhere classified Plan Patient has continued to get significant relief following his SI injection and does not require any additional interventions at this time. He will return to clinic in 6 months Patient has been instructed to contact the clinic with any concerns before the next appointment. Dr. George has reviewed this note and agrees with this plan of care. This note was dictated using voice recognition software and make contain errors or omissions. All injections are used with Lidocaine, Bupivacaine and Depo Medrol. Occasionally urine drug screen is needed to verify patient's compliance with our office pain contract. This is ordered based off specific treatments related to chronic pain with the potential to abuse certain medications.
== END 2024-11-14 23:59 | disposition home or self-care (01) ==
LOC: SC.PAIN 13:21
PROVIDERS: PCP Internal Medicine Adolescent Medicine; Visit Provider Nurse Practitioner Family
DX: M46.1 Sacroiliitis, not elsewhere classified (principal)
CPT/HCPCS: 99212; G0463

== ENCOUNTER 2025-07-09 13:04 | Day surgery (SDC) | payer BC, SELFPAY ==
[2025-07-09 13:08] VITALS: BP 123/71; BP 141/86; PULSE 72; PULSE 76; RESP 16; RESP 18; O2SAT 95; O2SAT 96; BMI 29.5
[2025-07-09] MEDS: LIDOCAINE 1% 5ML PF VIAL 5 ML (13:14)
[2025-07-09] MEDS: BUPIVACAINE 0.25% 10ML INJ 25 MG IJ (13:14)
--- NOTE | 2025-07-09 13:17 | P.PCN_ITS ---
Procedure Date: 07/09/25 Time: 13:10 Anesthesiologist:: Luis Dunbar CRNA Complications:: None Pre-procedure Diagnosis:: Degenerative disc lumbar spine multilevels. Lumbar radiculopathy. Lumbar spondylosis. Multilevel lumbar facet arthropathy. Post-procedure Diagnosis:: Same. Indications for Procedure:: Patient is a very pleasant 64-year-old male who comes our clinic today for round 1 of diagnostic lumbar medial branch block/facet injections at the bilateral L4- 5, L5-S1 level. Patient describes low lumbar back pain that is constant, dull, aching. He reports having difficulty with lumbar flexion, extension, left and right rotation. He rates his pain 7/10. Procedure Details:: Informed consent was obtained and the risk and benefits of the procedure was explained to the patient. Patient was taken to the procedure room where noninvasive monitors were placed, including noninvasive blood pressure cuff as well as pulse oximeter. The area over the lumbar spine was cleansed using chlorhexidine as a cleansing solution. I anesthetized the skin and subcutaneous tissues with 1% Lidocaine. I placed 22-gauge spinal needles into the facet joint/ medial branches of L4-L5, and L5-S1 bilaterally. Needle placement was confirmed with fluoroscopy. After confirmation of needle placement, each site was injected with 1 mL of 1% lidocaine and 0.25 % Marcaine 1 mL. Patient tolerated the procedure without difficulty. There were no complications. Plan and Disposition:: Patient was discharged without incident.
[2025-07-09 13:19] VITALS: BP 129/77; PULSE 72; RESP 16; O2SAT 97
== END 2025-07-09 13:19 | disposition home or self-care (01) ==
PROVIDERS: PCP Internal Medicine Adolescent Medicine; Visit Provider Nurse Anesthetist, Certified Registered
DX: M47.896 Other spondylosis, lumbar region (principal); K21.9 Gastro-esophageal reflux disease without esophagitis; Z85.46 Personal history of malignant neoplasm of prostate; Z87.19 Personal history of other diseases of the digestive system; Z90.79 Acquired absence of other genital organ(s); Z87.891 Personal history of nicotine dependence; Z79.1 Long term (current) use of non-steroidal anti-inflammatories (NSAID); Z79.899 Other long term (current) drug therapy
CPT/HCPCS: 64493; 64494; J0665; J2003